=== PATIENT | female | born 1960 | race Caucasian/White ===

== ENCOUNTER 2017-11-28 17:52 | Observation (INO) ==
--- NOTE | 2017-11-28 17:57 | Emergency Department Note ---
Disposition Clinical Impression: Chest pain, Atrial fibrillation Disposition: Admitted As Inpatient Condition: Good General Adult HPI - General Chief complaint: ED Chest Pain Stated complaint: chest pain Time Seen by Provider: 11/28/17 17:54 - Related Data Home Medications Medication Instructions Recorded Confirmed Amitriptyline 10 mg PO HS 11/28/17 11/29/17 Aspirin [Lo-Dose Aspirin EC] 81 mg PO HS 11/28/17 11/29/17 Atorvastatin [Lipitor] 80 mg PO HS 11/28/17 11/29/17 Bupropion HCl [Wellbutrin Xl] 300 mg PO DAILY 11/28/17 11/29/17 Levothyroxine [Synthroid] 88 mcg PO 0630 11/28/17 11/29/17 Lisinopril [Zestril] 20 mg PO DAILY 11/28/17 11/29/17 Metoprolol Tartrate 12.5 mg PO BID 11/28/17 11/29/17 Omeprazole [PriLOSEC] 20 mg PO DAILY 11/28/17 11/29/17 Sertraline [Zoloft] 50 mg PO DAILY 11/28/17 11/29/17 metFORMIN [Glucophage] 500 mg PO DAILY 11/28/17 11/29/17 Allergies Allergy/AdvReac Type Severity Reaction Status Date / Time ondansetron AdvReac Flushing Verified 12/13/15 14:52 [From Zofran (as hydrochloride)] Past Medical History - Past Medical History Medical history: Reports: arthritis, coronary artery disease, diabetes, hyperlipidemia, hypertension, myocardial infarction, thyroid disease Surgical history: Reports: coronary bypass (CABG) Psychiatric history: Reports: anxiety, depression - Social History Smoking Status: Former smoker Smokeless Tobacco Status: No Alcohol use: Reports: none Drug use: Reports: none Course Vital Signs Temperature 97.2 F L 11/28/17 17:53 Pulse Rate 87 11/28/17 17:53 Respiratory Rate 16 11/28/17 17:53 Blood Pressure 114/70 11/28/17 17:53 O2 Sat by Pulse Oximetry 94 11/28/17 17:53 Temperature 97.9 F 11/29/17 19:00 Pulse Rate 73 11/29/17 19:00 Respiratory Rate 16 11/29/17 19:00 Blood Pressure 124/65 11/29/17 19:00 O2 Sat by Pulse Oximetry 93 11/29/17 19:00 Oxygen Delivery Oxygen Delivery Room Air Medical Decision Making - Lab Data Result diagrams: 11/29/17 00:45 11/29/17 00:45 Lab Results 11/28/17 11/28/17 11/28/17 Range/Units 18:15 18:15 18:15 WBC 9.1 (4.3-11.1) K/mcL RBC 5.06 H (3.82-4.97) M/mcL Hgb 14.2 (11.5-15.4) g/dL Hct 44.2 (35.3-44.9) % MCV 87.4 (83.0-100.0) fL MCH 28.1 (28.0-33.3) pg MCHC 32.1 (31.6-35.5) g/dL RDW 12.7 (11.5-14.5) % Plt Count 289 (140-400) K/mcL MPV 9.9 (9.4-12.4) fL Immature Gran % 0.3 (0-4) % Seg Neutrophils % 68.3 % Lymphocytes % 21.1 % Monocytes % 7.6 % Eosinophils % 2.3 % Basophils % 0.4 % Neutrophils # 6.2 (1.6-8.9) K/mcL Lymphocytes # 1.9 (0.6-4.6) K/mcL Monocytes # 0.7 (0.0-1.3) K/mcL Eosinophils # 0.2 (0.0-0.6) K/mcL Basophils # 0.0 (0.0-0.2) K/mcL PT 12.0 (9.4-12.1) Seconds INR 1.1 APTT 33.3 (26.0-36.0) Seconds Sodium 135 L (136-145) mEq/L Potassium 4.2 (3.5-5.1) mEq/L Chloride 102 (98-107) mEq/L Carbon Dioxide 26 (23-29) mEq/L BUN 22 H (6-20) mg/dL Creatinine 0.97 (0.60-1.20) mg/dL Est GFR ( Amer) > 60 (> 60) Est GFR (Non-Af Amer) 59 L (> 60) BUN/Creatinine Ratio 23 (6-26) Glucose 91 (70-105) mg/dL Calculated Osmolality 283 (280-300) Calcium 9.4 (8.6-10.3) mg/dL Troponin I (< 0.04) ng/mL 11/28/17 Range/Units 18:15 WBC (4.3-11.1) K/mcL RBC (3.82-4.97) M/mcL Hgb (11.5-15.4) g/dL Hct (35.3-44.9) % MCV (83.0-100.0) fL MCH (28.0-33.3) pg MCHC (31.6-35.5) g/dL RDW (11.5-14.5) % Plt Count (140-400) K/mcL MPV (9.4-12.4) fL Immature Gran % (0-4) % Seg Neutrophils % % Lymphocytes % % Monocytes % % Eosinophils % % Basophils % % Neutrophils # (1.6-8.9) K/mcL Lymphocytes # (0.6-4.6) K/mcL Monocytes # (0.0-1.3) K/mcL Eosinophils # (0.0-0.6) K/mcL Basophils # (0.0-0.2) K/mcL PT (9.4-12.1) Seconds INR APTT (26.0-36.0) Seconds Sodium (136-145) mEq/L Potassium (3.5-5.1) mEq/L Chloride (98-107) mEq/L Carbon Dioxide (23-29) mEq/L BUN (6-20) mg/dL Creatinine (0.60-1.20) mg/dL Est GFR ( Amer) (> 60) Est GFR (Non-Af Amer) (> 60) BUN/Creatinine Ratio (6-26) Glucose (70-105) mg/dL Calculated Osmolality (280-300) Calcium (8.6-10.3) mg/dL Troponin I < 0.03 (< 0.04) ng/mL Attestation Statement - Attestation Attestation: I examined this patient and my medical decision-making was reviewed with the Resident Physician. I agree with the documented findings, disposition and treatment plan as described except to the extent set forth below. [id number] time provided Patient arrives by EMS complaining of chest discomfort. She has a history of coronary artery disease with previous multivessel CABG. She appears in no acute distress on exam. Workup initiated. Course to Dr. Luis at 19:00 pending completion of evaluation
[2017-11-28] MEDS ORDERED: Nitroglycerin 0.4 MG TAB.SUBL SL ONE (18:04)
--- NOTE | 2017-11-28 18:15 | Emergency Department Note ---
Disposition Clinical Impression: Chest pain Qualifiers: Chest pain type: unspecified Qualified Code(s): R07.9 - Chest pain, unspecified Disposition: Still a Patient Condition: Fair Forms: ED Satisfaction Letter Chest Pain HPI - General Chief Complaint: ED Chest Pain Stated Complaint: chest pain Time Seen by Provider: 11/28/17 17:54 Source: patient, EMS Mode of arrival: EMS Limitations: no limitations Vital Signs Reviewed: Yes Nursing Notes Reviewed: Yes - History of Present Illness HPI Narrative: 57-year-old female presented to the emergency department with chest pain she said it began about 23 hours prior to her arrival. Says like a chest pressure going into her left arm. She has had a quintuple bypass done in 2010. Patient states she has had no cardiac issues since then. Her last stress test and echocardiogram was about 2 years ago which was normal as far she knows. Patient stated that this pain came on said while she was sitting down. It is not worse with exertion and has not changed. She has not taken anything for the pain. EMS gave her 324 mg of aspirin with name pick her up. Patient otherwise having no complaints including no headache, blurry vision, neck pain, back pain, nausea, vomiting, fever, chills, shortness of breath, abdominal pain , pain or tingling in the arms and legs, generalized weakness, pain with urination, changes in bowel movements. Severity scale (1-10): 2 - Related Data Allergies Allergy/AdvReac Type Severity Reaction Status Date / Time ondansetron AdvReac Flushing Verified 12/13/15 14:52 [From Zofran (as hydrochloride)] Review of Systems: 10 point review of systems done and negative unless otherwise stated in history of present illness. All systems ED: reviewed and negative except as stated. Review of Systems: As Per HPI Chest Pain PMH - Past Medical History Medical history: Reports: arthritis, coronary artery disease, diabetes, hyperlipidemia, hypertension, myocardial infarction, thyroid disease Surgical history: Reports: coronary bypass (CABG) Psychiatric history: Reports: anxiety, depression - Social History Smoking Status: Former smoker Alcohol use: Reports: none Drug use: Reports: none Physical Exam - General Limitations: no limitations General appearance: alert, in no apparent distress - Head Head exam: atraumatic, normocephalic, normal inspection - Eye Eye exam: Present: normal appearance, PERRL, EOMI - ENT ENT exam: normal exam, normal oropharynx, mucous membranes moist - Neck Neck exam: Present: normal inspection, full ROM, trachea midline - Chest Chest inspection: Present: normal inspection, symmetric chest wall rise - Respiratory Respiratory exam: Present: normal lung sounds bilaterally - Cardiovascular Cardiovascular exam: Present: regular rate, normal rhythm, normal heart sounds - Abdominal Exam Abdominal exam: Present: soft, Non-Tender. Absent: tenderness, distention, guarding, rebound, rigidity - Extremities Exam Extremities exam: Present: normal inspection, full ROM. Absent: tenderness, pedal edema - Expanded Lower Extremity Exam Neurovascular/Tendon exam: Present: normal capillary refill. Absent: pulse deficit, motor deficit, sensory deficit, tendon deficit - Back Exam Back exam: Present: normal inspection - Neurological Exam Neurological exam: Present: alert, oriented X3 - Skin Skin exam: Present: warm, dry, intact, normal color Course Course Narrative: 57-year-old female presents to the emergency department complaining of chest pain. She says is more a chest pressures began about 2 or 3 hours ago while she was sitting down. We will get basic chest pain workup including CBC, BMP, troponin as well as EKG and chest x-ray. We will offer patient nitroglycerin for her chest pain if her blood pressure stays up. We will not give aspirin as this was already given by EMS. If troponin comes back negative erythematous, back negative we will repeat troponin 2 hours later. Vital Signs Temperature 97.2 F L 11/28/17 17:53 Pulse Rate 87 11/28/17 17:53 Respiratory Rate 16 11/28/17 17:53 Blood Pressure 114/70 11/28/17 17:53 O2 Sat by Pulse Oximetry 94 11/28/17 17:53 Temperature 97.2 F L 11/28/17 17:53 Pulse Rate 85 11/28/17 18:10 Respiratory Rate 13 11/28/17 18:10 Blood Pressure 114/70 11/28/17 18:10 O2 Sat by Pulse Oximetry 93 11/28/17 18:10 Oxygen Delivery Oxygen Delivery Room Air Chest Pain - MDM Narrative Medical decision making narrative: 57-year-old female presents to the emergency department complaining of chest pain. Labs and chest x-ray are still pending at this time. EKG had no acute findings. If troponin comes back negative one will be repeated 2 hours after the original one. If this comes back negative patient can be discharged home with cardiology follow-up. We did offer nitroglycerin but she is not having pain so did not give aspirin was given prior to her arrival. I am signing the patient out to the night team physicians Dr. Jacobs and Dr. Luis. They will follow-up on the repeat troponin to see if patient can be discharged. - Medical Records Medical records reviewed: Yes I reviewed the patient's medical records. - Lab Data Lab results reviewed: Yes I reviewed the patient's lab results. - Radiology Data Radiology results reviewed: Yes I reviewed the patient's radiology results. - EKG Data EKG attestation: Yes I reviewed and interpreted this EKG. EKG results narrative: EKG done at 1801 review myself intending shows sinus rhythm at a rate of 84, QRS 94, QTC 405 with a normal axis. There is no acute ST changes no acute T- wave changes no other signs of ischemia. There is no heart strain or hypertrophy or any sign of heart blocks. No WPW/Brugada syndrome. His EKG is unchanged when compared with old one done 12/13/15. Heart Score - Score History: Moderately Suspicious EKG: Normal Age: 45-65 Risk Factors: Equal/Greater than 3 risk factor or history of atherosclerotic disease
[2017-11-28 18:24] LABS: Basophils % 0.4 %; Eosinophils # 0.2 K/mcL (0.0-0.6); Eosinophils % 2.3 %; Hematocrit 44.2 % (35.3-44.9); Hemoglobin 14.2 g/dL (11.5-15.4); Immature Granulocytes % 0.3 % (0-4); Lymphocytes # 1.9 K/mcL (0.6-4.6); Lymphocytes % 21.1 %; Mean Corpuscular HGB Conc 32.1 g/dL (31.6-35.5); Mean Corpuscular Hemoglobin 28.1 pg (28.0-33.3); Mean Corpuscular Volume 87.4 fL (83.0-100.0); Mean Platelet Volume 9.9 fL (9.4-12.4); Monocytes # 0.7 K/mcL (0.0-1.3); Monocytes % 7.6 %; Neutrophils # 6.2 K/mcL (1.6-8.9); Platelet Count 289 K/mcL (140-400); Red Blood Count 5.06 M/mcL (3.82-4.97); Red Cell Distribution Width 12.7 % (11.5-14.5); Segmented Neutrophils % 68.3 %
[2017-11-28 18:29] LABS: INR 1.1
[2017-11-28 18:32] LABS: Activated Partial Thrombo Time 33.3 Seconds (26.0-36.0)
[2017-11-28 18:33] LABS: BUN/Creatinine Ratio 23 (6-26); Blood Urea Nitrogen 22 mg/dL (6-20); Calcium 9.4 mg/dL (8.6-10.3); Carbon Dioxide 26 mEq/L (23-29); Chloride 102 mEq/L (98-107); Glucose 91 mg/dL (70-105); Osmolality,Calculated 283 (280-300); Potassium 4.2 mEq/L (3.5-5.1); Sodium 135 mEq/L (136-145); eGFR For African Americans > 60 (> 60); eGFR For Non-African Americans 59 (> 60)
--- NOTE | 2017-11-28 19:12 | Emergency Department Note ---
Disposition Clinical Impression: Chest pain Qualifiers: Chest pain type: unspecified Qualified Code(s): R07.9 - Chest pain, unspecified Atrial fibrillation Qualifiers: Atrial fibrillation type: chronic Qualified Code(s): I48.2 - Chronic atrial fibrillation Disposition: Admitted As Inpatient Condition: Good Time of Disposition: 19:49 General Adult HPI - General Chief complaint: ED Chest Pain Stated complaint: chest pain Time Seen by Provider: 11/28/17 17:54 Source: patient, EMS Mode of arrival: EMS Limitations: no limitations - History of Present Illness Pain Scale: 2 - Related Data Allergies Allergy/AdvReac Type Severity Reaction Status Date / Time ondansetron AdvReac Flushing Verified 12/13/15 14:52 [From Zofran (as hydrochloride)] Past Medical History - Past Medical History Medical history: Reports: arthritis, coronary artery disease, diabetes, hyperlipidemia, hypertension, myocardial infarction, thyroid disease Surgical history: Reports: coronary bypass (CABG) Psychiatric history: Reports: anxiety, depression - Social History Smoking Status: Former smoker Smokeless Tobacco Status: No Alcohol use: Reports: none Drug use: Reports: none Physical Exam - General Limitations: no limitations General appearance: alert, in no apparent distress Course - Reevaluation(s) Reevaluation #1: Patient was signed out at 1900 from the day team. The patient presented to the emergency department for left neck shoulder and arm pain. Due to the patient having an extensive cardiac history it is likely that the patient will need to be admitted to the hospital. Upon my evaluation the patient was currently pain- free. We will repeat an EKG at this time. Patient is currently stable and in no acute distress. Time: 19:10 Vital Signs Temperature 97.2 F L 11/28/17 17:53 Pulse Rate 87 11/28/17 17:53 Respiratory Rate 16 11/28/17 17:53 Blood Pressure 114/70 11/28/17 17:53 O2 Sat by Pulse Oximetry 94 11/28/17 17:53 Temperature 97.2 F L 11/28/17 17:53 Pulse Rate 79 11/28/17 19:45 Respiratory Rate 12 11/28/17 19:45 Blood Pressure 136/69 11/28/17 19:45 O2 Sat by Pulse Oximetry 93 11/28/17 19:45 Oxygen Delivery Oxygen Delivery Room Air Medical Decision Making - MDM Narrative Medical decision making narrative: The patient reporting with chest pain today to get ordered a CBC, BMP, troponin and chest x-ray and EKG. The patient's troponin was negative the remainder of her laboratory testing was unremarkable the EKG showed atrial fibrillation. Chest x-ray showed no acute cardiopulmonary process. Upon talking with the patient states that she has a history of atrial fibrillation. Due to the patient having a extensive cardiac history with a quadruple bypass and presenting with left neck and shoulder and arm pain patient will need to be admitted to the hospital for further evaluation and management. I called and spoke with the hospitalist negative except for the patient to their service. The patient will be admitted to the hospital and for further evaluation and management. - Lab Data Lab results reviewed: Yes I reviewed the patient's lab results. Result diagrams: 11/28/17 18:15 11/28/17 18:15 Lab Results 11/28/17 11/28/17 11/28/17 Range/Units 18:15 18:15 18:15 WBC 9.1 (4.3-11.1) K/mcL RBC 5.06 H (3.82-4.97) M/mcL Hgb 14.2 (11.5-15.4) g/dL Hct 44.2 (35.3-44.9) % MCV 87.4 (83.0-100.0) fL MCH 28.1 (28.0-33.3) pg MCHC 32.1 (31.6-35.5) g/dL RDW 12.7 (11.5-14.5) % Plt Count 289 (140-400) K/mcL MPV 9.9 (9.4-12.4) fL Immature Gran % 0.3 (0-4) % Seg Neutrophils % 68.3 % Lymphocytes % 21.1 % Monocytes % 7.6 % Eosinophils % 2.3 % Basophils % 0.4 % Neutrophils # 6.2 (1.6-8.9) K/mcL Lymphocytes # 1.9 (0.6-4.6) K/mcL Monocytes # 0.7 (0.0-1.3) K/mcL Eosinophils # 0.2 (0.0-0.6) K/mcL Basophils # 0.0 (0.0-0.2) K/mcL PT 12.0 (9.4-12.1) Seconds INR 1.1 APTT 33.3 (26.0-36.0) Seconds Sodium 135 L (136-145) mEq/L Potassium 4.2 (3.5-5.1) mEq/L Chloride 102 (98-107) mEq/L Carbon Dioxide 26 (23-29) mEq/L BUN 22 H (6-20) mg/dL Creatinine 0.97 (0.60-1.20) mg/dL Est GFR ( Amer) > 60 (> 60) Est GFR (Non-Af Amer) 59 L (> 60) BUN/Creatinine Ratio 23 (6-26) Glucose 91 (70-105) mg/dL Calculated Osmolality 283 (280-300) Calcium 9.4 (8.6-10.3) mg/dL Troponin I (< 0.04) ng/mL 11/28/17 Range/Units 18:15 WBC (4.3-11.1) K/mcL RBC (3.82-4.97) M/mcL Hgb (11.5-15.4) g/dL Hct (35.3-44.9) % MCV (83.0-100.0) fL MCH (28.0-33.3) pg MCHC (31.6-35.5) g/dL RDW (11.5-14.5) % Plt Count (140-400) K/mcL MPV (9.4-12.4) fL Immature Gran % (0-4) % Seg Neutrophils % % Lymphocytes % % Monocytes % % Eosinophils % % Basophils % % Neutrophils # (1.6-8.9) K/mcL Lymphocytes # (0.6-4.6) K/mcL Monocytes # (0.0-1.3) K/mcL Eosinophils # (0.0-0.6) K/mcL Basophils # (0.0-0.2) K/mcL PT (9.4-12.1) Seconds INR APTT (26.0-36.0) Seconds Sodium (136-145) mEq/L Potassium (3.5-5.1) mEq/L Chloride (98-107) mEq/L Carbon Dioxide (23-29) mEq/L BUN (6-20) mg/dL Creatinine (0.60-1.20) mg/dL Est GFR ( Amer) (> 60) Est GFR (Non-Af Amer) (> 60) BUN/Creatinine Ratio (6-26) Glucose (70-105) mg/dL Calculated Osmolality (280-300) Calcium (8.6-10.3) mg/dL Troponin I < 0.03 (< 0.04) ng/mL - Radiology Data Radiology results reviewed: Yes I reviewed the patient's radiology results. Chest X-Ray 11/28/17 18:04 IMPRESSION: No acute cardiopulmonary process. D/ / Roosevelt Foley MD / Roosevelt Foley MD Interpreting Provider: Roosevelt Foley MD - EKG Data EKG #2 EKG attestation: Yes I reviewed and interpreted this EKG. EKG results narrative: EKG showed atrial for relation at a rate of 79 bpm, QRS duration of 101, QTc of 414. This was compared to previous EKG that was done at 1801 which also showed atrial fibrillation. This is compared to previous EKG on 12/13/15 that showed sinus rhythm at 83 bpm. Attestation Statement - Attestation Attestation: I examined this patient and my medical decision-making was reviewed with the Resident Physician. I agree with the documented findings, disposition and treatment plan as described except to the extent set forth below. Patient signed out pending workup. Patient with left shoulder and neck pain and a history coronary disease. She is admitted to medicine. Workup unremarkable this time.
[2017-11-28] MEDS ORDERED: Naloxone 0.4 MG/ML INJ IVP PRN (20:16)
--- NOTE | 2017-11-28 20:26 | Internal Med History&Physical ---
<Aki Moreno - Last Filed: 11/28/17 22:12> Date of Encounter: 11/28/17 Time of Encounter: 20:22 Assessment and Plan (1) Chest pain Current visit: Yes Status: Acute ASSESSMENT: - Atypical Chest pain presentation of unclear etiology. Patient has extensive cardiac history and multiple risk factors including diabetes, hypertension, hyperlipidemia, CAD, morbid obesity, prior smoking history, atrial fibrillation , previous NE and 4 vessel CABG. EKG in the ED shows atrial fibrillation, rate controlled, and initial troponin also unremarkable. However due to risk factors , history and presentation she is being admitted for observation to further rule out ACS. She is currently CP free and hemodynamically stable. PLAN: - cardiac enzymes x 2 q 6 hr - ASA - O2 by NC to keep SpO2 greater than 92% - CBCD, BMP in AM - Fasting lipids - Heparin 5000 U SQ BID - 2D Echo - Cardiac diet now, NPO midnight of Thursday night - Nuclear stress Thursday morning - Continuous tele, Continuous Spo2 monitoring - O2 per NC PRN to maintain Spo2 sat's greater than 92% Qualifiers: Chest pain type: unspecified Qualified Code(s): R07.9 - Chest pain, unspecified (2) CAD (coronary artery disease) Current visit: Yes Status: Acute Continue, ASA, Statin Qualifiers: Coronary Disease-Associated Artery/Lesion type: bypass graft [place] vs. transplanted heart: [place] heart Associated angina: with other forms of angina Qualified Code(s): I25.708 - Atherosclerosis of coronary artery bypass graft(s), unspecified, with other forms of angina pectoris (3) HLD (hyperlipidemia) Current visit: Yes Status: Acute Continue statin Qualifiers: Hyperlipidemia type: unspecified Qualified Code(s): E78.5 - Hyperlipidemia , unspecified (4) Atrial fibrillation Current visit: Yes Status: Acute Paroxysmal atrial fibrillation. Was A. fib rate controlled on arrival. Per auscultation and monitor she is now sinus rhythm -Continuous telemetry Qualifiers: Atrial fibrillation type: chronic Qualified Code(s): I48.2 - Chronic atrial fibrillation (5) Diabetes Current visit: Yes Status: Acute Low sliding scale insulin coverage with AC/HS accu-check and cardiac/diabetic diet Qualifiers: Diabetes mellitus type: type 2 Diabetes mellitus complication status: without complication Diabetes mellitus nursing home insulin use: without nursing home use Qualified Code(s): E11.9 - Type 2 diabetes mellitus without complications (6) HTN (hypertension) Current visit: Yes Status: Acute Stable. Resume antihypertensives Qualifiers: Hypertension type: essential hypertension Qualified Code(s): I10 - Essential (primary) hypertension (7) Hypothyroid Current visit: Yes Status: Acute Resume Synthroid Qualifiers: Hypothyroidism type: unspecified Qualified Code(s): E03.9 - Hypothyroidism , unspecified (8) DVT prophylaxis Current visit: Yes Status: Acute Heparin 5000 units SC BID Internal Medicine - H&P: HPI Chief complaint: chest pain Admitted From: Home Plans for Post Hospital Care: Home History of present illness: Ms. Rodriguez is a 57 year old female with a past medical history arthritis, CAD , DM, anxiety, HTN, NE, paroxysmal a-fib, hypothyroidism and 4 vessel CABG. She presented to [facility] today with dull ache in her left neck, face, shoulder and left arm which began at approximately 3 PM this afternoon and lasted for approximately 2 hours. The pain has subsided by the time she arrived to the emergency department. She denies any exacerbating or alleviating factors and reports that the pain came on all of a sudden when she was resting. She reports she had not taken anything for the pain. She denied any associated shortness of breath, chest pain, nausea, vomiting, diaphoresis, lightheadedness or dizziness. She does have a pretty extensive heart history and multiple comorbidities as listed above. Admit for observation to r/o ACS Past Med Surg Social Fam HX - Past Medical History Medical history: arthritis, coronary artery disease, diabetes, hyperlipidemia, hypertension, myocardial infarction, thyroid disease Psychiatric history: anxiety, depression - Past Surgical History Surgical History: coronary bypass (CABG) - Social History Smoking Status: Former smoker Smokeless Tobacco Status: No Alcohol use: none Drug use: none - Family History Mother Hx Family Cardiac Disorders: Yes (NE) Father Hx Family Cardiac Disorders: Yes (NE) Internal Medicine - H&P: Meds Amitriptyline 10 mg PO HS 11/28/17 [History] Aspirin [Lo-Dose Aspirin EC] 81 mg PO HS 11/28/17 [History] Atorvastatin [Lipitor] 80 mg PO HS 11/28/17 [History] Bupropion HCl [Wellbutrin Xl] 300 mg PO DAILY 11/28/17 [History] Levothyroxine [Synthroid] 88 mcg PO 0630 11/28/17 [History] Lisinopril [Zestril] 20 mg PO DAILY 11/28/17 [History] Metoprolol Tartrate 12.5 mg PO BID 11/28/17 [History] Omeprazole [PriLOSEC] 20 mg PO DAILY 11/28/17 [History] Sertraline [Zoloft] 50 mg PO DAILY 11/28/17 [History] metFORMIN [Glucophage] 500 mg PO DAILY 11/28/17 [History] 3 Allergy/AdvReac Type Severity Reaction Status Date / Time ondansetron AdvReac [place] Verified 12/13/15 14:52 [From Zofran (as hydrochloride)] All Systems PM: A 10-system review of systems was performed and is negative for pertinent findings except as documented above in the HPI. - Constitutional Constitutional: no chills, no fever(s), no night sweats - EENT Eyes: no change in vision, no discharge, no pain, no photophobia Ears: no ear discharge, no ear pain, no tinnitus Nose, mouth and throat: no dysphagia, no nasal discharge, no neck pain, no sore throat - Cardiovascular Cardiovascular ROS IM: as per HPI - Respiratory Respiratory: no cough, no dyspnea, no wheezing, no excessive phlegm production - Gastrointestinal Gastrointestinal: no abdominal pain, no diarrhea, no hematemesis, no hematochezia, no melena, no nausea, no vomiting - Genitourinary Genitourinary: no change in urinary stream, no dysuria, no flank pain, no hematuria - Musculoskeletal Musculoskeletal ROS IM: no numbness, no tingling - Integumentary Integumentary IM: no rash, no unusual bruising - Neurological Neurological ROS: no confusion, no convulsions, no focal weakness, no numbness, no tingling, no tremor(s) - Constitutional Vitals: Temp Pulse Resp BP Pulse Ox 97.2 F L 79 12 136/69 93 11/28/17 17:53 11/28/17 19:45 11/28/17 19:45 11/28/17 19:45 11/28/17 19:45 General appearance: Present: cooperative, A&O X 3, morbidly obese, no acute distress, answers questions appropriately - Head Head exam: Present: atraumatic, normocephalic - Eye Eye exam: Present: PERRL, conjuntiva pink, sclera anicteric Pupils: Present: PERRL - Neck Neck exam general surgery: Present: supple, trachea midline. Absent: lymphadenopathy - Respiratory Respiratory exam: Present: CTAB. Absent: accessory muscle use, rales, rhonchi, wheezes - Cardiovascular Cardiovascular exam: Present: RRR, +S1, +S2. Absent: diastolic murmur, gallop, rubs, systolic murmur, tachycardia - GI/Abdominal GI/Abdominal exam: Present: normal bowel sounds, soft, no peritoneal signs. Absent: distended, tenderness - Extremities Exam Extremities exam: Present: normal capillary refill, warm, radial pulses palpable and symmetrical. Absent: calf tenderness, cyanotic, pedal edema - Neurological Exam Neurological exam: Present: oriented X3, no focal deficits. Absent: pronater drift, facial droop, speech deficit - Skin Skin exam: Present: dry, intact Internal Med - H&P Results - Labs CBC & Chem 7: 11/28/17 18:15 11/28/17 18:15 - EKG Data -: EKG Interpreted by Myself - EKG Data EKG comments: A-fib rate control 11/28/17 20:48 - Impressions Impressions Chest X-Ray 11/28/17 18:04 IMPRESSION: No acute cardiopulmonary process. D/ / Roosevelt Foley MD / Roosevelt Foley MD Interpreting Provider: Roosevelt Foley MD <Herbert Meade - Last Filed: 11/28/17 22:48> Date of Encounter: 11/28/17 Time of Encounter: 21:15 Internal Medicine - H&P: HPI History of present illness: Ms. Rodriguez is a 57 year old female All Systems PM: A 10-system review of systems was performed and is negative for pertinent findings except as documented above in the HPI. - Constitutional Vitals: Temp Pulse Resp BP Pulse Ox 98.1 F 81 16 110/77 93 11/28/17 21:02 11/28/17 21:02 11/28/17 21:02 11/28/17 21:02 11/28/17 21:02 Internal Med - H&P Results - Labs CBC & Chem 7: 11/28/17 18:15 11/28/17 18:15 - Attending Attestation I examined this patient and my medical decision-making was reviewed with the Nurse Practitioner, Aki Moreno. I agree with the documented findings, disposition and treatment plan as described with any changes set forth below. 57-year-old female patient presenting with chest atypical chest pain. Reports left arm ache with radiation to the jaw and left chin and face associated with some numbness. Prior history of coronary artery disease and coronary artery bypass grafting. Also history of A. fib. On examination no chest wall tenderness. Patient is in A. fib. EKG shows A. fib with no ST segment changes. Chest pain: Atypical. Place patient under observation. Telemetry. Trend troponins. Cardiac stress test. Atrial fibrillation: Rate controlled. Patient reports being on anticoagulation but no medications listed on her chart and her INR is 1.1. Will get 2-D echocardiogram. For now, we will place her on subcutaneous heparin. Patient is on aspirin. She does have Chads2 Vasc Score of 3. We will need to discuss anticoagulation with her based on her echocardiogram findings. Diabetes mellitus type 2: Monitor blood sugars. Check A1c. Sliding scale insulin. Essential hypertension: Monitor blood pressure. Resume home medications. Coronary artery disease: Continue aspirin and other home medications.
[2017-11-28] MEDS ORDERED: Dextrose Gel 15 GM/37.5 ML TUBE PO PRN ×2 (22:10)
[2017-11-28] MEDS ORDERED: D5% in Water 1,000 ML IVC PRN (22:10)
[2017-11-28] MEDS ORDERED: *HR* Dextrose 50 % in Water (Syg) 50 ML SYRINGE IVP PRN (22:10)
[2017-11-28] MEDS: Aspirin Enteric Coated 81 MG Tablet PO SCH (22:40)
[2017-11-28] MEDS: Insulin LISPRO 300 UNITS/3 ML VIAL SQ SCH (22:41)
[2017-11-29 01:23] LABS: Basophils % 0.5 %; Eosinophils # 0.2 K/mcL (0.0-0.6); Eosinophils % 2.6 %; Hematocrit 40.5 % (35.3-44.9); Hemoglobin 12.9 g/dL (11.5-15.4); Immature Granulocytes % 0.9 % (0-4); Immature Platelets 3.4 % (1.1-6.1); Lymphocytes # 1.8 K/mcL (0.6-4.6); Lymphocytes % 20.8 %; Mean Corpuscular HGB Conc 31.9 g/dL (31.6-35.5); Mean Corpuscular Hemoglobin 27.9 pg (28.0-33.3); Mean Corpuscular Volume 87.5 fL (83.0-100.0); Monocytes # 0.5 K/mcL (0.0-1.3); Monocytes % 6.1 %; Neutrophils # 5.9 K/mcL (1.6-8.9); Nucleated Red Blood Cells 0.2 /100 WBC (0); Platelet Count 240 K/mcL (140-400); Red Blood Count 4.63 M/mcL (3.82-4.97); Red Cell Distribution Width 12.7 % (11.5-14.5); Segmented Neutrophils % 69.1 %
[2017-11-29 02:01] LABS: Chol/HDL Ratio 3.2 (0-4.9)
[2017-11-29 02:02] LABS: BUN/Creatinine Ratio 21 (6-26); Blood Urea Nitrogen 20 mg/dL (6-20); Carbon Dioxide 27 mEq/L (23-29); Chloride 107 mEq/L (98-107); Glucose 145 mg/dL (70-105); Osmolality,Calculated 293 (280-300); Sodium 139 mEq/L (136-145); eGFR For African Americans > 60 (> 60); eGFR For Non-African Americans 60 (> 60)
[2017-11-29] MEDS: *HR* Heparin 5,000 UNIT/ML VIAL SQ SCH ×2 (05:32→17:36)
[2017-11-29] MEDS: Insulin LISPRO 300 UNITS/3 ML VIAL SQ SCH ×4 (08:07→20:17)
[2017-11-29] MEDS: Lisinopril 20 MG TABLET PO SCH (08:11)
[2017-11-29] MEDS: BuPROPion XL (24 HR) 150 MG TABLET PO SCH (08:11)
[2017-11-29] MEDS ORDERED: Acetaminophen 325 MG TABLET PO PRN (16:02)
--- NOTE | 2017-11-29 16:50 | Internal Med Progress Note ---
Date of Encounter: 11/29/17 Time of Encounter: 10:45 - Assessment and plan (1) CAD (coronary artery disease) Current Visit: Yes Status: Acute Assessment and plan: hx MA; presented with left shoulder pain that radiated to the neck, concerning for anginal. Troponin 2 negative. EKG without acute ST changes. NPO at midnight. Stress test in a.m. Continue ASA, BB, statin, Qualifiers: Coronary Disease-Associated Artery/Lesion type: bypass graft [place] vs. transplanted heart: [place] heart Associated angina: with other forms of angina Qualified Code(s): I25.708 - Atherosclerosis of coronary artery bypass graft(s), unspecified, with other forms of angina pectoris (2) Atrial fibrillation Current Visit: Yes Status: Acute Assessment and plan: hx paroxysmal A. fib. EKG with NSR. Continue home BB. Not on anticoagulation for unknown reason. Will investigate. Continue to monitor on telemetry. Qualifiers: Atrial fibrillation type: chronic Qualified Code(s): I48.2 - Chronic atrial fibrillation (3) Diabetes Current Visit: Yes Status: Acute Assessment and plan: per hx. Blood sugars controlled. Continue SSI. Monitor blood sugar and titrate PRN Qualifiers: Diabetes mellitus type: type 2 Diabetes mellitus complication status: without complication Diabetes mellitus ferry terminal supervisor insulin use: without ferry terminal supervisor use Qualified Code(s): E11.9 - Type 2 diabetes mellitus without complications (4) HLD (hyperlipidemia) Current Visit: Yes Status: Acute Qualifiers: Hyperlipidemia type: unspecified Qualified Code(s): E78.5 - Hyperlipidemia , unspecified (5) HTN (hypertension) Current Visit: Yes Status: Acute Assessment and plan: per hx. BP controlled. Cont BP medication. Monitor BP and titrate PRN Qualifiers: Hypertension type: essential hypertension Qualified Code(s): I10 - Essential (primary) hypertension (6) Hypothyroid Current Visit: Yes Status: Acute Assessment and plan: per hx. Cont home Levothyroxine Qualifiers: Hypothyroidism type: unspecified Qualified Code(s): E03.9 - Hypothyroidism , unspecified (7) DVT prophylaxis Current Visit: Yes Status: Acute - Subjective Interval history: Seen and examined at bedside, patient is new to me. Information obtained from chart review and patient report. Patient says she feels at baseline. Says she never had chest pain but rather right upper extremity and neck pain which is now resolved. No shortness of breath. She will most likely be a two-day stress and she is agreeable to stay inpatient. - Constitutional Vitals: Temp Pulse Resp BP Pulse Ox 98.3 F 62 16 116/71 95 11/29/17 15:37 11/29/17 15:37 11/29/17 15:37 11/29/17 15:37 11/29/17 15:37 General appearance: Present: cooperative, A&O X 3, morbidly obese, no acute distress, answers questions appropriately - Head Head exam: Present: atraumatic, normocephalic - Eye Eye exam: Present: PERRL, conjuntiva pink, sclera anicteric Pupils: Present: PERRL - Neck Neck exam general surgery: Present: supple, trachea midline. Absent: lymphadenopathy - Respiratory Respiratory exam: Present: CTAB. Absent: accessory muscle use, rales, rhonchi, wheezes - Cardiovascular Cardiovascular exam: Present: RRR, +S1, +S2. Absent: diastolic murmur, gallop, rubs, systolic murmur - GI/Abdominal GI/Abdominal exam: Present: normal bowel sounds, soft, no peritoneal signs. Absent: distended, tenderness - Extremities Exam Extremities exam: Present: warm, radial pulses palpable and symmetrical. Absent : calf tenderness, cyanotic, pedal edema - Neurological Exam Neurological exam: Present: CN II-XII intact, oriented X3, no focal deficits. Absent: pronater drift, facial droop, speech deficit - Skin Skin exam: Present: dry, intact Internal Medicine: Result - Labs CBC & Chem 7: 11/29/17 00:45 11/29/17 00:45 Labs: Short CBC 11/29/17 Range/Units 00:45 WBC 8.5 (4.3-11.1) K/mcL Hgb 12.9 (11.5-15.4) g/dL Hct 40.5 (35.3-44.9) % Plt Count 240 (140-400) K/mcL Neutrophils # 5.9 (1.6-8.9) K/mcL BMP 11/29/17 00:45 Sodium 139 Potassium 4.0 Chloride 107 Carbon Dioxide 27 BUN 20 Creatinine 0.96 Glucose 145 H Calcium 9.0 Cardiac Enzymes 11/29/17 Range/Units 00:45 Troponin I < 0.03 (< 0.04) ng/mL - ABG Interpretation ABG results: PT/INR, D-dimer PT 12.0 Seconds (9.4-12.1) 11/28/17 18:15 Consult Discharge Plan - Plan Referrals: Ness Amaya, DI[employer]OND FINISHING SUPERVISOR [Primary Care Provider] -
[2017-11-29] MEDS: Aspirin Enteric Coated 81 MG Tablet PO SCH (20:17)
[2017-11-30] MEDS: *HR* Heparin 5,000 UNIT/ML VIAL SQ SCH ×2 (04:58→18:16)
[2017-11-30] MEDS ORDERED: Regadenoson 0.4 MG/5 ML SYRINGE IVP ONE (06:33)
[2017-11-30] MEDS: Insulin LISPRO 300 UNITS/3 ML VIAL SQ SCH ×4 (07:49→20:53)
[2017-11-30] MEDS: BuPROPion XL (24 HR) 150 MG TABLET PO SCH (09:26)
[2017-11-30] MEDS: Lisinopril 20 MG TABLET PO SCH (09:26)
--- NOTE | 2017-11-30 17:46 | Internal Med Progress Note ---
Date of Encounter: 11/30/17 Time of Encounter: 17:50 - Assessment and plan (1) CAD (coronary artery disease) Current Visit: Yes Status: Acute Assessment and plan: hx PR; presented with left shoulder pain that radiated to the neck, concerning for anginal. Troponin 2 negative. EKG without acute ST changes. NPO at midnight. Stress test in a.m. Continue ASA, BB, statin, Qualifiers: Coronary Disease-Associated Artery/Lesion type: bypass graft [place] vs. transplanted heart: [place] heart Associated angina: with other forms of angina Qualified Code(s): I25.708 - Atherosclerosis of coronary artery bypass graft(s), unspecified, with other forms of angina pectoris (2) Atrial fibrillation Current Visit: Yes Status: Acute Assessment and plan: hx paroxysmal A. fib. EKG with NSR. Continue home BB. Not on anticoagulation for unknown reason; patient says she has never been on anticoagulation. Unsure why. Continue to monitor on telemetry. Qualifiers: Atrial fibrillation type: chronic Qualified Code(s): I48.2 - Chronic atrial fibrillation (3) Diabetes Current Visit: Yes Status: Acute Assessment and plan: per hx. Blood sugars controlled. Continue SSI. Monitor blood sugar and titrate PRN Qualifiers: Diabetes mellitus type: type 2 Diabetes mellitus complication status: without complication Diabetes mellitus exterminator helper insulin use: without [place] use Qualified Code(s): E11.9 - Type 2 diabetes mellitus without complications (4) HLD (hyperlipidemia) Current Visit: Yes Status: Acute Assessment and plan: per hx. Cont home statin Qualifiers: Hyperlipidemia type: unspecified Qualified Code(s): E78.5 - Hyperlipidemia , unspecified (5) HTN (hypertension) Current Visit: Yes Status: Acute Assessment and plan: per hx. BP controlled. Cont BP medication. Monitor BP and titrate PRN Qualifiers: Hypertension type: essential hypertension Qualified Code(s): I10 - Essential (primary) hypertension (6) Hypothyroid Current Visit: Yes Status: Acute Assessment and plan: per hx. Cont home Levothyroxine Qualifiers: Hypothyroidism type: unspecified Qualified Code(s): E03.9 - Hypothyroidism , unspecified (7) DVT prophylaxis Current Visit: Yes Status: Acute Assessment and plan: heparin - Subjective Interval history: Seen and examined at bedside; eventful day, had first prior stress test today and second part plan for tomorrow. She has no complaints. No further recurrence of left shoulder or neck pain. No chest pain or shortness of breath. - Constitutional Vitals: Temp Pulse Resp BP Pulse Ox 97.4 F L 72 16 121/66 96 11/30/17 16:17 11/30/17 16:17 11/30/17 16:17 11/30/17 16:17 11/30/17 16:17 General appearance: Present: cooperative, A&O X 3, morbidly obese, no acute distress, answers questions appropriately - Head Head exam: Present: atraumatic, normocephalic - Eye Eye exam: Present: PERRL, conjuntiva pink, sclera anicteric Pupils: Present: PERRL - Neck Neck exam general surgery: Present: supple, trachea midline. Absent: lymphadenopathy - Respiratory Respiratory exam: Present: CTAB. Absent: accessory muscle use, rales, rhonchi, wheezes - Cardiovascular Cardiovascular exam: Present: RRR, +S1, +S2. Absent: diastolic murmur, gallop, rubs, systolic murmur - GI/Abdominal GI/Abdominal exam: Present: normal bowel sounds, soft, no peritoneal signs. Absent: distended, tenderness - Extremities Exam Extremities exam: Present: warm, radial pulses palpable and symmetrical. Absent : calf tenderness, cyanotic, pedal edema - Neurological Exam Neurological exam: Present: CN II-XII intact, oriented X3, no focal deficits. Absent: pronater drift, facial droop, speech deficit - Skin Skin exam: Present: dry, intact Internal Medicine: Result - Labs CBC & Chem 7: 11/29/17 00:45 11/29/17 00:45 - ABG Interpretation ABG results: PT/INR, D-dimer PT 12.0 Seconds (9.4-12.1) 11/28/17 18:15 - Impressions Impressions Echocardiogram 11/29/17 12:00 Impressions: LVEF 45-50%. Low normal to mild global LV systolic dysfunction. LV size not well measured. Visually, LV is dilated. Indeterminate diastolic function. Dilated RV with normal function. Bi-atrial enlargement. Mild-moderate mitral regurgitation. Moderate tricuspid regurgitation. No pulmonary hypertension. Left Ventricular Wall Motion: Rest Echo Findings The apex, apical inferior, mid inferior, basal inferior, apical anterior, mid anterior, basal anterior, apical septal, mid inferior septal, basal inferior septal, apical lateral, mid anterior lateral and basal anterior lateral tirado were hypokinetic. The mid anterior septal, mid inferior lateral and basal inferior lateral tir[place] were not visualized. All other wall segments showed normal motion. Findings: Study Quality * Technically sub-optimal due to body habitus. ECG Findings * Consider atrial fibrillation. Left Ventricle * LVEF 45-50%. * Indeterminate diastolic function. * LV size not well measured. Visually, LV is dilated. * LV wall thickness measurements are not well obtained. Right Ventricle * Dilated RV with normal function. Left Atrium * Moderately dilated left atrium. Right Atrium * Moderately dilated right atrium. Aortic Valve * No aortic regurgitation. * Aortic valve not well visualized. * No aortic stenosis. Mitral Valve * Normal mitral valve structure. * No mitral stenosis. * Mild-moderate mitral regurgitation. Tricuspid Valve * Tricuspid valve not well visualized. * Moderate tricuspid regurgitation. * Estimated RA pressure is 3 mmHg. * Estimated RVSP is 27 mmHg. * No pulmonary hypertension. Pulmonic Valve * Pulmonic valve is not well visualized. * No pulmonic stenosis. * No pulmonic regurgitation. Pulmonary Artery * Pulmonary artery not well visualized. Aorta * Normally sized aortic root. Pericardium * There is no pericardial effusion present. Interatrial Septum * No evidence of PFO by color Doppler. IVC * Normal IVC dimensions and inspiratory collapse. Consult Discharge Plan - Plan Referrals: Ness Amaya, EPILEPSY PHYSICIAN [Primary Care Provider] -
[2017-11-30] MEDS: Aspirin Enteric Coated 81 MG Tablet PO SCH (20:51)
[2017-12-01] MEDS: *HR* Heparin 5,000 UNIT/ML VIAL SQ SCH (05:35)
[2017-12-01] MEDS: Insulin LISPRO 300 UNITS/3 ML VIAL SQ SCH ×2 (08:39→12:23)
[2017-12-01] MEDS: BuPROPion XL (24 HR) 150 MG TABLET PO SCH (09:03)
[2017-12-01] MEDS: Lisinopril 20 MG TABLET PO SCH (09:03)
[2017-12-01 15:00] VITALS: BP 106/62
--- NOTE | 2017-12-01 15:01 | Discharge Summary ---
Date of Encounter: 12/01/17 Time of Encounter: 14:55 - Discharge Diagnosis (1) CAD (coronary artery disease) Priority: Primary Status: Acute Comments: hx [place]; presented with left shoulder pain that radiated to the neck, concerning for anginal equivalent. Troponin 2 negative. EKG without acute ST changes. nuclear stress test with medium size, mild intensity fixed perfusion defect. Consistent with prior infarct/CABG. No symptom recurrence while inpatient. Maximize medical management with addition of long-acting nitrate. Continue ASA, BB, statin, add isosorbide. Follow up with primary factory worker within 2 weeks. Qualifiers: Coronary Disease-Associated Artery/Lesion type: bypass graft [place] vs. transplanted heart: [place] heart Associated angina: with other forms of angina Qualified Code(s): I25.708 - Atherosclerosis of coronary artery bypass graft(s), unspecified, with other forms of angina pectoris (2) Atrial fibrillation Priority: Secondary Status: Chronic Comments: hx paroxysmal A. fib. EKG with NSR. Not on anticoagulation for unknown reason ; patient says she has never been on anticoagulation (unsure why). No evidence of A. fib on telemetry. Continue home BB. Defer anticoagulation to cardiology. Qualifiers: Atrial fibrillation type: chronic Qualified Code(s): I48.2 - Chronic atrial fibrillation (3) Diabetes Priority: Secondary Status: Chronic Comments: per hx. blood sugars controlled. Continue home metformin. Qualifiers: Diabetes mellitus type: type 2 Diabetes mellitus complication status: without complication Diabetes mellitus fpc insulin use: without bed bug exterminator use Qualified Code(s): E11.9 - Type 2 diabetes mellitus without complications (4) HLD (hyperlipidemia) Priority: Secondary Status: Chronic Comments: per hx. Cont home statin Qualifiers: Hyperlipidemia type: unspecified Qualified Code(s): E78.5 - Hyperlipidemia , unspecified (5) HTN (hypertension) Priority: Secondary Status: Chronic Comments: per hx. BP controlled. Cont home BP medications. Qualifiers: Hypertension type: essential hypertension Qualified Code(s): I10 - Essential (primary) hypertension (6) Hypothyroid Priority: Secondary Status: Chronic Comments: per hx. Cont home levothyroxine Qualifiers: Hypothyroidism type: unspecified Qualified Code(s): E03.9 - Hypothyroidism , unspecified - Discharge Medications Prescriptions: Isosorbide MONOnitrate (24 HR) [Imdur] 30 mg PO DAILY #30 tab.er.24h Home Medications: Amitriptyline 10 mg PO HS 11/28/17 [History] Aspirin [Lo-Dose Aspirin EC] 81 mg PO HS 11/28/17 [History] Atorvastatin [Lipitor] 80 mg PO HS 11/28/17 [History] Bupropion HCl [Wellbutrin Xl] 300 mg PO DAILY 11/28/17 [History] Levothyroxine [Synthroid] 88 mcg PO 0630 11/28/17 [History] Lisinopril [Zestril] 20 mg PO DAILY 11/28/17 [History] Metoprolol Tartrate 12.5 mg PO BID 11/28/17 [History] Omeprazole [PriLOSEC] 20 mg PO DAILY 11/28/17 [History] Sertraline [Zoloft] 50 mg PO DAILY 11/28/17 [History] metFORMIN [Glucophage] 500 mg PO DAILY 11/28/17 [History] Isosorbide MONOnitrate (24 HR) [Imdur] 30 mg PO DAILY #30 tab.er.24h 12/01/17 [ Rx] Allergies/Adverse Reactions: 3 Allergy/AdvReac Type Severity Reaction Status Date / Time ondansetron AdvReac [place] Verified 12/13/15 14:52 [From Zofran (as hydrochloride)] Procedures/tests Complete & Pending: Procedures Performed prior 72 hours Category Date Time Status NM miki perf SPECT multi [NM] Routine Exams 11/28/17 20:15 Taken EV echocardiogram Stat Y 11/29/17 12:00 Completed SP pharm nuclear stress Routine Y 11/30/17 09:00 Completed Date of admission: 11/28/17 20:10 Primary care physician: Ness Amaya CNP Discharging clinician: Juani Larson Anticipated date of discharge: 12/01/17 - Patient Status Disposition: Home, Self-Care Condition: Good Functional capacity at discharge: independent ambulation Overall status at discharge: patient is back to baseline - Discharge Instructions Instructions: Isosorbide Mononitrate (By mouth), Coronary Artery Disease (DC) Follow Up With: Ness Amaya CNP [Primary Care Provider] - 12/08/17 11:00 am Luis Urias DO [Partnered Physician] - (Please call [facility] office within 2 weeks for follow-up appointment.) - Diet and Activity Activity: increase activity as tolerated Diet: low fat, low cholesterol Interval History: Seen and examined at bedside. States had uneventful night. No recurrence of left shoulder or left neck pain discussed stress test results and the addition of isosorbide. She is agreeable to try long-acting nitrate with outpatient cardiology follow-up. Patient advised if symptoms returned or she experiences chest pain and/or shortness of breath she is to return to the emergency room. Hospital course: Ms. Rodriguez is a 57 year old female - Time Spent with Patient Total time spent providing and/or coordinating discharge services: - Constitutional Vitals: Temp Pulse Resp BP Pulse Ox 98.2 F 66 16 99/59 96 12/01/17 12:18 12/01/17 12:18 12/01/17 12:18 12/01/17 12:18 12/01/17 12:18 General appearance: Present: cooperative, A&O X 3, morbidly obese, no acute distress, answers questions appropriately - Head Head exam: Present: atraumatic, normocephalic - Eye Eye exam: Present: PERRL, conjuntiva pink, sclera anicteric Pupils: Present: PERRL - Neck Neck exam general surgery: Present: supple, trachea midline. Absent: lymphadenopathy - Respiratory Respiratory exam: Present: CTAB. Absent: accessory muscle use, rales, rhonchi, wheezes - Cardiovascular Cardiovascular exam: Present: RRR, +S1, +S2. Absent: diastolic murmur, gallop, rubs, systolic murmur - GI/Abdominal GI/Abdominal exam: Present: normal bowel sounds, soft, no peritoneal signs. Absent: distended, tenderness - Extremities Exam Extremities exam: Present: warm, radial pulses palpable and symmetrical. Absent : calf tenderness, cyanotic, pedal edema - Neurological Exam Neurological exam: Present: CN II-XII intact, oriented X3, no focal deficits. Absent: pronater drift, facial droop, speech deficit - Skin Skin exam: Present: dry, intact
--- NOTE | 2017-12-01 17:12 | Electrocardiograph Report ---
[address] [address] Test Date: 2017-11-28 Pat Name: Any Rodriguez Department: 104 Room: [facility] Gender: F Bounty Hunter: KRISHNA : 1960 Requested By: Michael Brock Order Number: [id number] Reading MD: Roni Evans Measurements Intervals [place] Rate: 84 P: NV: 0 QRS: -13 QRSD: 94 T: 16 QT: 364 QTc: 405 Interpretive Statements ATRIAL FIBRILLATION LOW QRS VOLTAGE IN PRECORDIAL LEADS ABNORMAL RHYTHM ECG Electronically Signed On 12-01-2017 17:10:38 EST by Roni Evans
--- NOTE | 2017-12-01 17:16 | Electrocardiograph Report ---
[address] [place], [place] [address] Test Date: 2017-11-28 Pat Name: Any Rodriguez Department: 104 Room: 3B Gender: F Traffic Rate Analyst: EKP : 1960 Requested By: Lc Jacobs Order Number: [id number] Reading MD: Roni Evans Measurements Intervals [place] Rate: 79 P: DC: 0 QRS: -13 QRSD: 101 T: 29 QT: 379 QTc: 414 Interpretive Statements ATRIAL FIBRILLATION LOW QRS VOLTAGE IN PRECORDIAL LEADS POSSIBLE INFERIOR MYOCARDIAL INFARCTION, PROBABLY OLD WITH POSTERIOR EXTENSION ABNORMAL RHYTHM ECG Electronically Signed On 12-01-2017 17:15:10 EST by Roni Evans
== END 2017-12-01 16:57 | disposition home or self-care (01) ==
LOC: EMEROO 17:52 → 3BNU 17:52
PROVIDERS: ADMIT Nurse Practitioner; ATTEND Registered Nurse

== ENCOUNTER 2021-06-13 13:40 | Inpatient (IN) ==
[2021-06-13] MEDS ORDERED: Azithromycin 500 MG in 0.9 % Sodium Chloride 250 ML IVPB ONE (14:16)
[2021-06-13] MEDS ORDERED: 0.9 % Sodium Chloride 1,000 ML IVC ONE (14:16)
[2021-06-13] MEDS ORDERED: Vancomycin 2,000 MG/520 ML IV.SOLN IVPB ONE (14:16)
[2021-06-13] MEDS ORDERED: cefTRIAXone 1,000 MG in Water for inj. (sterile) 10 ML IVP ONE (14:16)
[2021-06-13 14:43] LABS: Basophils % 0.3 %; Hematocrit 43.8 % (35.3-44.9); Hemoglobin 14.9 g/dL (11.5-15.4); Immature Granulocytes % 0.9 % (0-4); Lymphocytes % 15.1 %; Mean Corpuscular Hemoglobin 29.6 pg (28.0-33.3); Mean Corpuscular Volume 87.1 fL (83.0-100.0); Mean Platelet Volume 9.8 fL (9.4-12.4); Monocytes # 0.6 K/mcL (0.0-1.3); Monocytes % 8.9 %; Platelet Count 170 K/mcL (140-400); Red Blood Count 5.03 M/mcL (3.82-4.97); Red Cell Distribution Width 13.1 % (11.5-14.5); Segmented Neutrophils % 74.8 %; White Blood Count 6.6 K/mcL (4.3-11.1)
[2021-06-13 15:03] LABS: VBG HCO3 22 mEq/L (21-27); VBG PCO2 33 mmHg (41-51); VBG PH 7.44 pH Units (7.32-7.42); VBG PO2 121 mmHg (25-50)
[2021-06-13 15:09] LABS: INR 2.7; Prothrombin Time 30.6 Seconds (9.4-12.1)
[2021-06-13 15:12] LABS: Activated Partial Thrombo Time 43.3 Seconds (26.0-36.0)
[2021-06-13 15:14] LABS: Alanine Aminotransferase 122 Units/L (7-52); Albumin 3.5 g/dL (3.5-5.7); Alkaline Phosphatase 87 Units/L (34-104); Aspartate Amino Transferase 243 Units/L (13-39); BUN/Creatinine Ratio 18 (6-26); Bilirubin,Direct 0.3 mg/dL (0.0-0.2); Bilirubin,Indirect 0.4 mg/dL (0.0-1.0); Bilirubin,Total 0.7 mg/dL (0.3-1.0); Blood Urea Nitrogen 17 mg/dL (8-23); Calcium 8.4 mg/dL (8.6-10.3); Carbon Dioxide 23 mEq/L (23-29); Chloride 95 mEq/L (98-107); Globulin 3.5 g/dL (2.4-3.5); Glucose 149 mg/dL (70-105); Magnesium 1.7 mg/dL (1.6-2.6); Osmolality,Calculated 270 (280-300); Phosphorous 2.3 mg/dL (2.7-4.5); Potassium 4.1 mEq/L (3.5-5.1); Sodium 128 mEq/L (136-145); Troponin I 0.06 ng/mL (< 0.04); eGFR For African Americans > 60 (> 60); eGFR For Non-African Americans > 60 (> 60)
[2021-06-13 16:27] LABS: Adenovirus Not Detected (Not Detect); Coronavirus 229E Not Detected (Not Detect); Coronavirus HKU1 Not Detected (Not Detect); Coronavirus NL63 Not Detected (Not Detect); Coronavirus OC43 Not Detected (Not Detect)
[2021-06-13 16:30] LABS: Bordetella Pertussis Not Detected (Not Detect); Chlamydophila pneumoniae Not Detected (Not Detect); Human Metapneumovirus Not Detected (Not Detect); Human Rhinovirus/Enterovirus Not Detected (Not Detect); Influenza A Subtype 2009 H1 Not Detected (Not Detect); Influenza B Not Detected (Not Detect); Mycoplasma pneumoniae Not Detected (Not Detect); Parainfluenza Virus 1 Not Detected (Not Detect); Parainfluenza Virus 2 Not Detected (Not Detect); Parainfluenza Virus 3 Not Detected (Not Detect); Parainfluenza Virus 4 Not Detected (Not Detect); Respiratory Syncytial Virus Not Detected (Not Detect); SARS-CoV-2 DETECTED (Not Detect)
[2021-06-13] MEDS ORDERED: Naloxone 0.4 MG/ML INJ IVP PRN (16:42)
[2021-06-13] MEDS ORDERED: Dextrose Gel 15 GM/37.5 ML TUBE PO PRN ×2 (16:47)
[2021-06-13] MEDS ORDERED: *HR* Dextrose 50 % in Water (Vial) 50 ML VIAL IVP PRN (16:47)
[2021-06-13] MEDS ORDERED: D5% in Water 1,000 ML IVC PRN (16:47)
[2021-06-13] MEDS ORDERED: *HR* Metoprolol 5 MG/5 ML VIAL IVP PRN (16:47)
[2021-06-13 18:24] LABS: Estimated Average Glucose 171 mg/dl; Hemoglobin A1C 7.6 %
[2021-06-13] MEDS: Aspirin Enteric Coated 81 MG Tablet PO SCH (21:32)
[2021-06-13] MEDS: Furosemide 20 MG/2 ML VIAL IVP SCH (22:01)
[2021-06-13] MEDS: *HR* Heparin 5,000 UNIT/ML VIAL SQ SCH (22:11)
[2021-06-13] MEDS: Insulin LISPRO 300 UNITS/3 ML VIAL SUBQ SCH (22:13)
[2021-06-14] MEDS: *HR* Heparin 5,000 UNIT/ML VIAL SQ SCH ×2 (06:07→16:27)
[2021-06-14 06:19] LABS: Basophils % 0.4 %; Hematocrit 42.5 % (35.3-44.9); Hemoglobin 13.9 g/dL (11.5-15.4); Immature Granulocytes % 1.5 % (0-4); Lymphocytes # 0.7 K/mcL (0.6-4.6); Lymphocytes % 13.5 %; Mean Corpuscular HGB Conc 32.7 g/dL (31.6-35.5); Mean Corpuscular Hemoglobin 28.8 pg (28.0-33.3); Mean Corpuscular Volume 88.2 fL (83.0-100.0); Mean Platelet Volume 10.4 fL (9.4-12.4); Monocytes # 0.2 K/mcL (0.0-1.3); Monocytes % 4.8 %; Neutrophils # 3.8 K/mcL (1.6-8.9); Platelet Count 165 K/mcL (140-400); Red Blood Count 4.82 M/mcL (3.82-4.97); Red Cell Distribution Width 13.2 % (11.5-14.5); Segmented Neutrophils % 79.8 %; White Blood Count 4.8 K/mcL (4.3-11.1)
[2021-06-14 06:35] LABS: BUN/Creatinine Ratio 19 (6-26); Blood Urea Nitrogen 18 mg/dL (8-23); Calcium 7.9 mg/dL (8.6-10.3); Carbon Dioxide 23 mEq/L (23-29); Chloride 99 mEq/L (98-107); Glucose 192 mg/dL (70-105); Magnesium 1.9 mg/dL (1.6-2.6); Osmolality,Calculated 279 (280-300); Phosphorous 3.3 mg/dL (2.7-4.5); Potassium 4.1 mEq/L (3.5-5.1); Sodium 131 mEq/L (136-145); eGFR For African Americans > 60 (> 60); eGFR For Non-African Americans > 60 (> 60)
[2021-06-14] MEDS: cefTRIAXone 1,000 MG in Water for inj. (sterile) 10 ML IVP SCH (10:30)
[2021-06-14] MEDS: Furosemide 20 MG/2 ML VIAL IVP SCH (10:30)
[2021-06-14] MEDS: Insulin LISPRO 300 UNITS/3 ML VIAL SUBQ SCH ×3 (11:20→20:56)
[2021-06-14 11:43] LABS: Alanine Aminotransferase 98 Units/L (7-52); Albumin 3.1 g/dL (3.5-5.7); Albumin/Globulin Ratio 0.9 (1.1-2.2); Alkaline Phosphatase 76 Units/L (34-104); Aspartate Amino Transferase 195 Units/L (13-39); Bilirubin,Direct 0.2 mg/dL (0.0-0.2); Bilirubin,Indirect 0.4 mg/dL (0.0-1.0); Bilirubin,Total 0.6 mg/dL (0.3-1.0); Globulin 3.4 g/dL (2.4-3.5); Total Protein 6.5 g/dL (6.4-8.9)
[2021-06-14] MEDS ORDERED: Azithromycin 500 MG in 0.9 % Sodium Chloride 250 ML IVPB SCH (17:00)
[2021-06-14] MEDS: Aspirin Enteric Coated 81 MG Tablet PO SCH (20:54)
[2021-06-14] MEDS: Clobetasol Propionate 0.05% 15 GM Cream Tube TP SCH (23:58)
[2021-06-15 00:15] LABS: Bilirubin,Urine Negative (Negative); Blood,Urine Trace (Negative); Clarity,Urine Clear (Clear); Color,Urine Light-Yellow (Yellow); Glucose,Urine (UA) Normal (Normal); Hyaline Casts,Urine Few per lpf (None Seen); Ketones,Urine Trace mg/dL (Negative); Leukocyte Esterase,Urine Trace (Negative); Mucus,Urine Few per lpf (None-Few); Nitrite,Urine Negative (Negative); PH,Urine 6.5 pH Units (5.0-8.0); Protein,Urine 70 mg/dL (Neg-Trace); RBC,Urine 0-3 per hpf (0-3); Specific Gravity,Urine 1.024 (1.010-1.025); Squamous Epithelial Cell,Urine Few per hpf (None-Few); Urobilinogen,Urine Normal (Normal); WBC,Urine 0-3 per hpf (0-3)
[2021-06-15 00:34] LABS: Acinetobacter baumannii by PCR Not Detected (Not Detect); Candida albicans by PCR Not Detected (Not Detect); Candida glabrata by PCR Not Detected (Not Detect); Candida krusei by PCR Not Detected (Not Detect); Candida parapsilosis by PCR Not Detected (Not Detect); Candida tropicalis by PCR Not Detected (Not Detect); Enterobacter cloacae Cmplx PCR Not Detected (Not Detect); Enterobacteriaceae by PCR Not Detected (Not Detect); Enterococcus by PCR Not Detected (Not Detect); Escherichia coli by PCR Not Detected (Not Detect); Klebsiella oxytoca by PCR Not Detected (Not Detect); Klebsiella pneumoniae by PCR Not Detected (Not Detect); Proteus by PCR Not Detected (Not Detect); Pseudomonas aeruginosa by PCR Not Detected (Not Detect); Serratia marcescens by PCR Not Detected (Not Detect); Staphylococcus aureus by PCR Not Detected (Not Detect); Staphylococcus by PCR Not Detected (Not Detect); Streptococcus agalactiae(B)PCR Not Detected (Not Detect); Streptococcus by PCR Not Detected (Not Detect); Streptococcus pneumoniae PCR Not Detected (Not Detect); Streptococcus pyogenes (A) PCR Not Detected (Not Detect); mecA Methicillin-Resist Gene Not Detected (Not Detect); vanA/B Vancomycin-Resist Genes Not Detected (Not Detect)
[2021-06-15] MEDS: *HR* Heparin 5,000 UNIT/ML VIAL SQ SCH ×2 (05:54→17:48)
[2021-06-15] MEDS: Insulin LISPRO 300 UNITS/3 ML VIAL SUBQ SCH ×5 (07:20→20:14)
[2021-06-15] MEDS: lisinopriL 20 MG TABLET PO SCH (08:54)
[2021-06-15] MEDS: cefTRIAXone 1,000 MG in Water for inj. (sterile) 10 ML IVP SCH (08:54)
[2021-06-15] MEDS: Isosorbide MONOnitrate (24 HR) 30 MG TAB.ER.24H PO SCH (08:54)
[2021-06-15] MEDS: Dexamethasone Sodium Phos/PF 10 MG/ML VIAL IVP SCH (08:55)
[2021-06-15] MEDS: Furosemide 20 MG/2 ML VIAL IVP SCH (08:56)
[2021-06-15] MEDS: Clobetasol Propionate 0.05% 15 GM Cream Tube TP SCH ×2 (08:57→20:15)
[2021-06-15 13:08] LABS: Adenovirus F 40/41 PCR Not detected (Not detect); Astrovirus PCR Not detected (Not detect); C.difficile Toxin A/B Gene PCR Not detected (Not detect); Campylobacter by PCR Not detected (Not detect); Cryptosporidium by PCR Not detected (Not detect); Cyclospora cayetanensis PCR Not detected (Not detect); E. coli O157 by PCR Not detected (Not detect); Entamoeba histolytica PCR Not detected (Not detect); Enteroaggregative E.coli(EAEC) Not detected (Not detect); Enteropathogenic E.coli(EPEC) DETECTED (Not detect); Enterotoxigenic E.coli (ETEC) Not detected (Not detect); Giardia lamblia PCR Not detected (Not detect); Norovirus GI/GII PCR Not detected (Not detect); Plesiomonas shigelloides PCR Not detected (Not detect); Rotavirus A PCR Not detected (Not detect); Salmonella PCR Not detected (Not detect); Sapovirus PCR Not detected (Not detect); Shig/EnteroinvasiveE coli EIEC Not detected (Not detect); Shigalike tox-prod E coli STEC Not detected (Not detect); Vibrio PCR Not detected (Not detect); Vibrio cholerae PCR Not detected (Not detect); Yersinia enterocolitica PCR Not detected (Not detect)
[2021-06-15] MEDS: Aspirin Enteric Coated 81 MG Tablet PO SCH (20:11)
[2021-06-15] MEDS ORDERED: *HR* Promethazine 25 MG/ML VIAL IM ONE (20:26)
[2021-06-16 04:41] LABS: Basophils % 0.2 %; Hematocrit 44.2 % (35.3-44.9); Hemoglobin 14.3 g/dL (11.5-15.4); Immature Granulocytes % 1.4 % (0-4); Lymphocytes # 1.1 K/mcL (0.6-4.6); Lymphocytes % 11.3 %; Mean Corpuscular HGB Conc 32.4 g/dL (31.6-35.5); Mean Corpuscular Hemoglobin 28.5 pg (28.0-33.3); Mean Corpuscular Volume 88.2 fL (83.0-100.0); Mean Platelet Volume 9.7 fL (9.4-12.4); Monocytes # 0.7 K/mcL (0.0-1.3); Monocytes % 7.8 %; Neutrophils # 7.4 K/mcL (1.6-8.9); Platelet Count 268 K/mcL (140-400); Red Blood Count 5.01 M/mcL (3.82-4.97); Red Cell Distribution Width 13.2 % (11.5-14.5); Segmented Neutrophils % 79.3 %; White Blood Count 9.3 K/mcL (4.3-11.1)
[2021-06-16 04:55] LABS: BUN/Creatinine Ratio 21 (6-26); Blood Urea Nitrogen 18 mg/dL (8-23); Calcium 8.4 mg/dL (8.6-10.3); Carbon Dioxide 24 mEq/L (23-29); Chloride 101 mEq/L (98-107); Glucose 193 mg/dL (70-105); Osmolality,Calculated 285 (280-300); Potassium 3.8 mEq/L (3.5-5.1); Sodium 134 mEq/L (136-145); eGFR For African Americans > 60 (> 60); eGFR For Non-African Americans > 60 (> 60)
[2021-06-16] MEDS: *HR* Heparin 5,000 UNIT/ML VIAL SQ SCH ×2 (06:22→17:56)
[2021-06-16] MEDS ORDERED: *HR* LORazepam 2 MG/ML VIAL IVP ONE (06:51)
[2021-06-16] MEDS ORDERED: *HR* LORazepam 2 MG/ML VIAL ONE (06:55)
[2021-06-16] MEDS ORDERED: Furosemide 40 MG/4 ML VIAL IVP ONE (07:26)
[2021-06-16] MEDS ORDERED: Albumin 25% 25gram/100mL 25 GM/100 ML IV.SOLN IVPB ONE ×2 (08:00→11:39)
[2021-06-16] MEDS ORDERED: 0.9 % Sodium Chloride 1,000 ML ONE (08:46)
[2021-06-16] MEDS ORDERED: Artificial Tears SOLN 15 ML BOTTLE BOTH EYES PRN (09:01)
[2021-06-16] MEDS ORDERED: *HR* Midazolam HCl 5 MG/5 ML VIAL IVP ONE ×5 (09:08→16:21)
[2021-06-16] MEDS ORDERED: *HR* FentaNYL (PF) 100 MCG/2 ML VIAL ONE (09:15)
[2021-06-16] MEDS ORDERED: Cisatracurium 200 MG in 0.9 % Sodium Chloride 180 ML IVC SCH (09:15)
[2021-06-16] MEDS ORDERED: FentaNYL (PF) 1,000 MCG/100 ML IV.SOLN IVC SCH ×2 (09:15→13:00)
[2021-06-16] MEDS ORDERED: *HR* FentaNYL (PF) 100 MCG/2 ML VIAL IVP ONE (09:18)
[2021-06-16] MEDS ORDERED: Haloperidol Lactate 5 MG/ML VIAL IVP ONE (09:19)
[2021-06-16 09:50] LABS: C-Reactive Protein 31 mg/L (Less than 10)
[2021-06-16] MEDS ORDERED: 0.9 % Sodium Chloride 500 ML ONE (10:00)
[2021-06-16] MEDS ORDERED: Norepinephrine 4 MG/254 ML IV.SOLN IVC SCH (10:15)
[2021-06-16] MEDS ORDERED: Dextrose Gel 15 GM/37.5 ML TUBE PO PRN ×2 (11:39)
[2021-06-16] MEDS ORDERED: *HR* Dextrose 50 % in Water (Vial) 50 ML VIAL IVP PRN (11:39)
[2021-06-16] MEDS ORDERED: D5% in Water 1,000 ML IVC PRN (11:39)
[2021-06-16] MEDS ORDERED: Naloxone 0.4 MG/ML INJ IVP PRN (11:39)
[2021-06-16] MEDS ORDERED: *HR* Metoprolol 5 MG/5 ML VIAL IVP PRN (11:39)
[2021-06-16] MEDS ORDERED: Artificial Tears SOLN 15 ML BOTTLE BOTH EYES SCH (12:00)
[2021-06-16 13:21] LABS: INR 1.3; Prothrombin Time 14.7 Seconds (9.4-12.1)
[2021-06-16] MEDS: Dexmedetomidine HCl 400 MCG/100 ML MLS IVC SCH (13:51)
[2021-06-16] MEDS: Vasopressin 40 UNIT in D5% in Water 100 ML IVC SCH (14:21)
[2021-06-16] MEDS ORDERED: Lidocaine -MPF 2% 5 ML VIAL SQ ONE (16:21)
[2021-06-16] MEDS ORDERED: *HR* Etomidate 20 MG/10 ML AMPUL IVP ONE (16:21)
[2021-06-16] MEDS ORDERED: *HR* Succinylcholine 200 MG/10 ML VIAL IVP ONE (16:21)
[2021-06-16] MEDS ORDERED: Insulin LISPRO 300 UNITS/3 ML VIAL SUBQ SCH ×2 (16:30→21:00)
[2021-06-16] MEDS: Insulin LISPRO 300 UNITS/3 ML VIAL SUBQ SCH ×3 (18:32→23:49)
[2021-06-16] MEDS: Furosemide 20 MG/2 ML VIAL IVP SCH (18:33)
[2021-06-16] MEDS: Isosorbide MONOnitrate (24 HR) 30 MG TAB.ER.24H PO SCH (18:33)
[2021-06-16] MEDS: Dexamethasone Sodium Phos/PF 10 MG/ML VIAL IVP SCH (18:33)
[2021-06-16] MEDS: cefTRIAXone 1,000 MG in Water for inj. (sterile) 10 ML IVP SCH (18:34)
[2021-06-16] MEDS: lisinopriL 20 MG TABLET PO SCH (18:34)
[2021-06-16] MEDS: Clobetasol Propionate 0.05% 15 GM Cream Tube TP SCH ×2 (18:34→20:43)
[2021-06-16] MEDS: Cisatracurium 200 MG in 0.9 % Sodium Chloride 180 ML IVC SCH (19:04)
[2021-06-16] MEDS: FentaNYL (PF) 2,500 MCG/50 ML IV.SOLN IVC SCH (19:20)
[2021-06-16] MEDS ORDERED: *HR* Metoprolol 5 MG/5 ML VIAL IVP ONE ×2 (19:40→19:42)
[2021-06-16] MEDS ORDERED: Chlorhexidine Rinse 15 ML MOUTHWASH MM SCH (21:00)
[2021-06-16] MEDS ORDERED: Aspirin Enteric Coated 81 MG Tablet PO SCH (21:00)
[2021-06-17] MEDS: Norepinephrine 4 MG/254 ML IV.SOLN IVC SCH ×3 (00:07→19:30)
[2021-06-17] MEDS: FentaNYL (PF) 2,500 MCG/50 ML IV.SOLN IVC SCH ×2 (03:37→16:15)
[2021-06-17] MEDS: Insulin LISPRO 300 UNITS/3 ML VIAL SUBQ SCH ×6 (04:13→23:53)
[2021-06-17 04:17] LABS: VBG Ionized Calcium 1.07 mmol/L (1.15-1.35)
[2021-06-17 04:26] LABS: ABG Base Excess -2 mEq/L (-2 to 3); ABG HCO3 24 mEq/L (21-27); ABG Oxygen Saturation 99 % (95-98); ABG PCO2 46 mmHg (35-45); ABG PH 7.33 pH Units (7.32-7.45); ABG PO2 126 mmHg (85-104); ABG TCO2 26 mEq/L (20-26); Blood Gas Modality ASSIST CONTROL; Blood Gas VT 380 cc
[2021-06-17 04:46] LABS: Basophils # 0.1 K/mcL (0.0-0.2); Basophils % 0.7 %; Hemoglobin 13.2 g/dL (11.5-15.4); Immature Granulocytes % 2.9 % (0-4); Lymphocytes # 0.8 K/mcL (0.6-4.6); Lymphocytes % 6.4 %; Mean Corpuscular HGB Conc 31.4 g/dL (31.6-35.5); Mean Corpuscular Volume 92.3 fL (83.0-100.0); Mean Platelet Volume 9.4 fL (9.4-12.4); Monocytes # 0.9 K/mcL (0.0-1.3); Monocytes % 6.7 %; Neutrophils # 10.8 K/mcL (1.6-8.9); Nucleated Red Blood Cells 0.2 /100 WBC (0); Platelet Count 341 K/mcL (140-400); Red Blood Count 4.55 M/mcL (3.82-4.97); Red Cell Distribution Width 13.7 % (11.5-14.5); Segmented Neutrophils % 83.3 %; White Blood Count 12.9 K/mcL (4.3-11.1)
[2021-06-17 05:02] LABS: Calcium 7.9 mg/dL (8.6-10.3); Magnesium 2.1 mg/dL (1.6-2.6); Phosphorous 7.1 mg/dL (2.7-4.5); Potassium 4.7 mEq/L (3.5-5.1)
[2021-06-17] MEDS: *HR* Heparin 5,000 UNIT/ML VIAL SQ SCH ×3 (05:39→23:25)
[2021-06-17] MEDS: Cisatracurium 200 MG in 0.9 % Sodium Chloride 180 ML IVC SCH ×3 (05:41→22:21)
[2021-06-17] MEDS: Calcium Gluconate 1gm/50mL 1 GM/50 ML BAG IVPB PRN ×2 (05:53→06:43)
[2021-06-17] MEDS: Dexmedetomidine HCl 400 MCG/100 ML MLS IVC SCH ×2 (07:49→23:26)
[2021-06-17] MEDS: cefTRIAXone 1,000 MG in Water for inj. (sterile) 10 ML IVP SCH (08:05)
[2021-06-17] MEDS: Pantoprazole 40 MG VIAL IVP SCH (08:31)
[2021-06-17] MEDS ORDERED: Furosemide 20 MG/2 ML VIAL IVP SCH (09:00)
[2021-06-17] MEDS ORDERED: lisinopriL 20 MG TABLET PO SCH (09:00)
[2021-06-17] MEDS ORDERED: Dexamethasone Sodium Phos/PF 10 MG/ML VIAL IVP SCH (09:00)
[2021-06-17] MEDS ORDERED: Isosorbide MONOnitrate (24 HR) 30 MG TAB.ER.24H PO SCH (09:00)
[2021-06-17] MEDS ORDERED: Artificial Tears SOLN 15 ML BOTTLE BOTH EYES PRN (11:51)
[2021-06-17] MEDS: Clobetasol Propionate 0.05% 15 GM Cream Tube TP SCH ×2 (15:22→20:09)
[2021-06-17] MEDS: Artificial Tears SOLN 15 ML BOTTLE BOTH EYES SCH ×4 (15:23→23:26)
[2021-06-17] MEDS: Albumin 25% 25gram/100mL 25 GM/100 ML IV.SOLN IVC SCH ×4 (15:32→20:26)
[2021-06-17] MEDS: Vasopressin 40 UNIT in D5% in Water 100 ML IVC SCH (15:40)
[2021-06-17] MEDS ORDERED: Phenylephrine 10 MG in 0.9 % Sodium Chloride 250 ML IVC SCH (16:15)
[2021-06-17] MEDS: Phenylephrine 50 MG in 0.9 % Sodium Chloride 250 ML IVC SCH ×2 (16:45→23:55)
[2021-06-17 19:32] LABS: Sodium, Urine 37.6 mEq/L
[2021-06-17] MEDS: Chlorhexidine Rinse 15 ML MOUTHWASH MM SCH (19:40)
[2021-06-18] MEDS: Artificial Tears SOLN 15 ML BOTTLE BOTH EYES SCH ×5 (03:15→20:31)
[2021-06-18 04:04] LABS: Basophils # 0.1 K/mcL (0.0-0.2); Basophils % 0.6 %; Hematocrit 36.1 % (35.3-44.9); Hemoglobin 11.4 g/dL (11.5-15.4); Immature Granulocytes % 4.8 % (0-4); Lymphocytes # 0.6 K/mcL (0.6-4.6); Lymphocytes % 4.6 %; Mean Corpuscular HGB Conc 31.6 g/dL (31.6-35.5); Mean Corpuscular Hemoglobin 28.9 pg (28.0-33.3); Mean Corpuscular Volume 91.6 fL (83.0-100.0); Mean Platelet Volume 9.2 fL (9.4-12.4); Monocytes % 8.3 %; Neutrophils # 10.2 K/mcL (1.6-8.9); Nucleated Red Blood Cells 0.2 /100 WBC (0); Platelet Count 320 K/mcL (140-400); Red Blood Count 3.94 M/mcL (3.82-4.97); Red Cell Distribution Width 13.3 % (11.5-14.5); Segmented Neutrophils % 81.7 %; White Blood Count 12.5 K/mcL (4.3-11.1)
[2021-06-18 04:06] LABS: VBG Ionized Calcium 1.04 mmol/L (1.15-1.35)
[2021-06-18 04:43] LABS: ABG Base Excess -5 mEq/L (-2 to 3); ABG HCO3 24 mEq/L (21-27); ABG Oxygen Saturation 88 % (95-98); ABG PCO2 63 mmHg (35-45); ABG PH 7.19 pH Units (7.32-7.45); ABG PO2 67 mmHg (85-104); ABG TCO2 26 mEq/L (20-26); Blood Gas Modality ASSIST CONTROL; Blood Gas VT 380 cc
[2021-06-18] MEDS: Insulin LISPRO 300 UNITS/3 ML VIAL SUBQ SCH ×5 (04:44→21:12)
[2021-06-18 04:48] LABS: Calcium 8.2 mg/dL (8.6-10.3); Magnesium 2.3 mg/dL (1.6-2.6); Phosphorous 7.7 mg/dL (2.7-4.5); Potassium 4.6 mEq/L (3.5-5.1)
[2021-06-18] MEDS: FentaNYL (PF) 2,500 MCG/50 ML IV.SOLN IVC SCH ×2 (05:03→17:43)
[2021-06-18] MEDS: *HR* Heparin 5,000 UNIT/ML VIAL SQ SCH ×3 (05:40→21:13)
[2021-06-18] MEDS: Calcium Gluconate 1gm/50mL 1 GM/50 ML BAG IVPB SCH ×2 (05:54→06:59)
[2021-06-18] MEDS: Cisatracurium 200 MG in 0.9 % Sodium Chloride 180 ML IVC SCH ×3 (06:28→22:45)
[2021-06-18 07:25] LABS: Platelet Estimate Normal (Normal)
[2021-06-18] MEDS: Chlorhexidine Rinse 15 ML MOUTHWASH MM SCH ×2 (07:36→20:30)
[2021-06-18] MEDS: Dexamethasone Sodium Phos/PF 10 MG/ML VIAL IVP SCH (07:36)
[2021-06-18] MEDS: Aspirin 81 MG TAB.CHEW GTUBE SCH (07:36)
[2021-06-18] MEDS: Pantoprazole 40 MG VIAL IVP SCH (07:37)
[2021-06-18] MEDS: cefTRIAXone 1,000 MG in Water for inj. (sterile) 10 ML IVP SCH (07:37)
[2021-06-18] MEDS: Clobetasol Propionate 0.05% 15 GM Cream Tube TP SCH ×2 (07:37→21:12)
[2021-06-18] MEDS: Phenylephrine 50 MG in 0.9 % Sodium Chloride 250 ML IVC SCH ×2 (07:39→17:44)
[2021-06-18] MEDS: Dexmedetomidine HCl 400 MCG/100 ML MLS IVC SCH (10:49)
[2021-06-18] MEDS ORDERED: Insulin DETEMIR 100 UNIT/ML X5UNITS SUBQ ONE (11:00)
[2021-06-18] MEDS: Nystatin POWDER 30 GM BOTTLE TP SCH ×2 (11:06→21:12)
[2021-06-18] MEDS ORDERED: 0.9 % Sodium Chloride 500 ML ONE (13:19)
[2021-06-18] MEDS ORDERED: *HR* Heparin 5,000 UNIT/ML VIAL ONE (13:28)
[2021-06-18] MEDS: Vasopressin 40 UNIT in D5% in Water 100 ML IVC SCH (14:16)
[2021-06-18 14:55] LABS: ABG Base Excess -6 mEq/L (-2 to 3); ABG HCO3 22 mEq/L (21-27); ABG Oxygen Saturation 84 % (95-98); ABG PCO2 54 mmHg (35-45); ABG PH 7.22 pH Units (7.32-7.45); ABG PO2 59 mmHg (85-104); ABG TCO2 24 mEq/L (20-26); Blood Gas Modality ASSIST CONTROL; Blood Gas VT 380 cc
[2021-06-18] MEDS ORDERED: Calcium Gluconate 1gm/50mL 1 GM/50 ML BAG IVPB PRN ×2 (15:20)
[2021-06-18] MEDS ORDERED: Albumin 25% 25gram/100mL 25 GM/100 ML IV.SOLN IVPB ONE (16:35)
[2021-06-18] MEDS: 0.9 % Sodium Chloride 1,000 ML PRIME SCH ×6 (17:05→23:36)
[2021-06-18 17:09] LABS: VBG Ionized Calcium 1.04 mmol/L (1.15-1.35)
[2021-06-18] MEDS: Calcium Chloride 4,000 MG in 0.9 % Sodium Chloride 1,000 ML CRRT SCH (18:11)
[2021-06-18] MEDS: PrismaSATE BGK 4/2.5 5,000 ML CRRT SCH ×4 (18:28→22:45)
[2021-06-18 20:22] LABS: VBG Ionized Calcium 0.96 mmol/L (1.15-1.35)
[2021-06-18] MEDS ORDERED: Insulin DETEMIR 100 UNIT/ML X5UNITS SUBQ SCH (21:00)
[2021-06-18] MEDS: Insulin DETEMIR 100 UNIT/ML X5UNITS SUBQ SCH (23:36)
[2021-06-19 00:38] LABS: VBG Ionized Calcium 1.04 mmol/L (1.15-1.35)
[2021-06-19] MEDS: Insulin LISPRO 300 UNITS/3 ML VIAL SUBQ SCH ×7 (00:44→23:33)
[2021-06-19] MEDS: Artificial Tears SOLN 15 ML BOTTLE BOTH EYES SCH ×7 (00:45→23:13)
[2021-06-19] MEDS: 0.9 % Sodium Chloride 1,000 ML PRIME SCH ×23 (00:45→23:57)
[2021-06-19 02:17] LABS: VBG Ionized Calcium 1.07 mmol/L (1.15-1.35)
[2021-06-19] MEDS: Dexmedetomidine HCl 400 MCG/100 ML MLS IVC SCH ×2 (02:21→17:35)
[2021-06-19] MEDS: PrismaSATE BGK 4/2.5 5,000 ML CRRT SCH ×8 (03:45→18:50)
[2021-06-19] MEDS: Phenylephrine 50 MG in 0.9 % Sodium Chloride 250 ML IVC SCH ×2 (04:00→12:26)
[2021-06-19 04:13] LABS: Basophils # 0.1 K/mcL (0.0-0.2); Basophils % 0.7 %; Hematocrit 35.3 % (35.3-44.9); Hemoglobin 11.3 g/dL (11.5-15.4); Immature Granulocytes % 4.8 % (0-4); Lymphocytes # 0.6 K/mcL (0.6-4.6); Lymphocytes % 3.9 %; Mean Corpuscular Hemoglobin 28.7 pg (28.0-33.3); Mean Corpuscular Volume 89.6 fL (83.0-100.0); Mean Platelet Volume 8.9 fL (9.4-12.4); Monocytes # 1.3 K/mcL (0.0-1.3); Monocytes % 8.5 %; Neutrophils # 12.4 K/mcL (1.6-8.9); Nucleated Red Blood Cells 0.1 /100 WBC (0); Platelet Count 355 K/mcL (140-400); Red Blood Count 3.94 M/mcL (3.82-4.97); Red Cell Distribution Width 13.2 % (11.5-14.5); Segmented Neutrophils % 82.1 %; White Blood Count 15.1 K/mcL (4.3-11.1)
[2021-06-19 04:19] LABS: VBG Ionized Calcium 1.12 mmol/L (1.15-1.35)
[2021-06-19] MEDS: Cisatracurium 200 MG in 0.9 % Sodium Chloride 180 ML IVC SCH ×4 (04:45→18:15)
[2021-06-19 04:48] LABS: Albumin 3.5 g/dL (3.5-5.7); Albumin/Globulin Ratio 1.3 (1.1-2.2); Bilirubin,Direct 0.8 mg/dL (0.0-0.2); Bilirubin,Indirect 0.4 mg/dL (0.0-1.0); Bilirubin,Total 1.2 mg/dL (0.3-1.0); Calcium 8.8 mg/dL (8.6-10.3); Globulin 2.7 g/dL (2.4-3.5); Magnesium 2.1 mg/dL (1.6-2.6); Potassium 4.2 mEq/L (3.5-5.1); Total Protein 6.2 g/dL (6.4-8.9)
[2021-06-19 04:57] LABS: ABG Base Excess -2 mEq/L (-2 to 3); ABG HCO3 26 mEq/L (21-27); ABG Oxygen Saturation 85 % (95-98); ABG PCO2 64 mmHg (35-45); ABG PH 7.23 pH Units (7.32-7.45); ABG PO2 62 mmHg (85-104); ABG TCO2 28 mEq/L (20-26); Blood Gas Modality ASSIST CONTROL; Blood Gas VT 380 cc
[2021-06-19] MEDS: *HR* Heparin 5,000 UNIT/ML VIAL SQ SCH ×3 (05:43→20:54)
[2021-06-19] MEDS: FentaNYL (PF) 2,500 MCG/50 ML IV.SOLN IVC SCH ×2 (08:00→22:00)
[2021-06-19] MEDS: Pantoprazole 40 MG VIAL IVP SCH (08:13)
[2021-06-19] MEDS: Dexamethasone Sodium Phos/PF 10 MG/ML VIAL IVP SCH (08:13)
[2021-06-19] MEDS: Aspirin 81 MG TAB.CHEW GTUBE SCH (08:14)
[2021-06-19] MEDS: Chlorhexidine Rinse 15 ML MOUTHWASH MM SCH ×2 (08:14→20:42)
[2021-06-19] MEDS: cefTRIAXone 1,000 MG in Water for inj. (sterile) 10 ML IVP SCH (08:14)
[2021-06-19] MEDS: Insulin DETEMIR 100 UNIT/ML X5UNITS SUBQ SCH ×2 (08:15→20:57)
[2021-06-19 08:46] LABS: INR 1.1; Prothrombin Time 12.3 Seconds (9.4-12.1)
[2021-06-19] MEDS: Nystatin POWDER 30 GM BOTTLE TP SCH ×2 (08:56→20:42)
[2021-06-19] MEDS: Clobetasol Propionate 0.05% 15 GM Cream Tube TP SCH ×2 (08:56→20:58)
[2021-06-19 11:08] LABS: VBG Ionized Calcium 1.07 mmol/L (1.15-1.35)
[2021-06-19] MEDS: Calcium Chloride 4,000 MG in 0.9 % Sodium Chloride 1,000 ML CRRT SCH (12:27)
[2021-06-19 14:18] LABS: VBG Ionized Calcium 1.07 mmol/L (1.15-1.35)
[2021-06-19] MEDS: Norepinephrine 4 MG/254 ML IV.SOLN IVC SCH (14:18)
[2021-06-19 16:36] LABS: VBG Ionized Calcium 1.08 mmol/L (1.15-1.35)
[2021-06-19 18:22] LABS: VBG Ionized Calcium 1.08 mmol/L (1.15-1.35)
[2021-06-19 20:53] LABS: VBG Ionized Calcium 1.08 mmol/L (1.15-1.35)
[2021-06-19] MEDS: *HR* Heparin 5,000 UNIT/ML VIAL IVP PRN (22:00)
[2021-06-19 23:04] LABS: VBG Ionized Calcium 1.09 mmol/L (1.15-1.35)
[2021-06-20] MEDS: PrismaSATE BGK 4/2.5 5,000 ML CRRT SCH ×10 (01:10→22:00)
[2021-06-20] MEDS: 0.9 % Sodium Chloride 1,000 ML PRIME SCH ×18 (01:16→23:48)
[2021-06-20 01:36] LABS: VBG Ionized Calcium 1.06 mmol/L (1.15-1.35)
[2021-06-20] MEDS: Cisatracurium 200 MG in 0.9 % Sodium Chloride 180 ML IVC SCH ×3 (02:00→18:52)
[2021-06-20] MEDS: Phenylephrine 50 MG in 0.9 % Sodium Chloride 250 ML IVC SCH ×3 (02:07→22:50)
[2021-06-20] MEDS: Calcium Chloride 4,000 MG in 0.9 % Sodium Chloride 1,000 ML CRRT SCH ×3 (02:50→22:50)
[2021-06-20] MEDS: Artificial Tears SOLN 15 ML BOTTLE BOTH EYES SCH ×6 (03:27→23:48)
[2021-06-20 03:33] LABS: Basophils # 0.1 K/mcL (0.0-0.2); Basophils % 0.4 %; Hemoglobin 11.1 g/dL (11.5-15.4); Immature Granulocytes % 5.2 % (0-4); Lymphocytes % 3.2 %; Mean Corpuscular HGB Conc 31.7 g/dL (31.6-35.5); Mean Corpuscular Hemoglobin 28.8 pg (28.0-33.3); Mean Corpuscular Volume 90.7 fL (83.0-100.0); Mean Platelet Volume 9.1 fL (9.4-12.4); Monocytes # 1.8 K/mcL (0.0-1.3); Nucleated Red Blood Cells 0.4 /100 WBC (0); Platelet Count 389 K/mcL (140-400); Red Blood Count 3.86 M/mcL (3.82-4.97); Red Cell Distribution Width 13.6 % (11.5-14.5); Segmented Neutrophils % 82.2 %; White Blood Count 20.3 K/mcL (4.3-11.1)
[2021-06-20 03:34] LABS: Lymphocytes # 0.7 K/mcL (0.6-4.6); Neutrophils # 16.7 K/mcL (1.6-8.9)
[2021-06-20 03:36] LABS: VBG Ionized Calcium 1.12 mmol/L (1.15-1.35)
[2021-06-20 03:56] LABS: Albumin 3.1 g/dL (3.5-5.7); Albumin/Globulin Ratio 1.1 (1.1-2.2); Bilirubin,Direct 0.5 mg/dL (0.0-0.2); Bilirubin,Indirect 0.4 mg/dL (0.0-1.0); Bilirubin,Total 0.9 mg/dL (0.3-1.0); Calcium 9.3 mg/dL (8.6-10.3); Globulin 2.7 g/dL (2.4-3.5); Magnesium 1.9 mg/dL (1.6-2.6); Phosphorous 3.6 mg/dL (2.7-4.5); Potassium 4.3 mEq/L (3.5-5.1); Total Protein 5.8 g/dL (6.4-8.9)
[2021-06-20 04:32] LABS: ABG Base Excess 3 mEq/L (-2 to 3); ABG HCO3 32 mEq/L (21-27); ABG Oxygen Saturation 84 % (95-98); ABG PCO2 70 mmHg (35-45); ABG PH 7.27 pH Units (7.32-7.45); ABG PO2 58 mmHg (85-104); ABG TCO2 34 mEq/L (20-26); Blood Gas Modality AF; Blood Gas VT 380 cc
[2021-06-20] MEDS: Insulin LISPRO 300 UNITS/3 ML VIAL SUBQ SCH ×6 (04:34→23:48)
[2021-06-20 04:40] LABS: Platelet Estimate Normal (Normal); Reactive Lymphocytes Present (Not Present)
[2021-06-20 05:41] LABS: VBG Ionized Calcium 1.08 mmol/L (1.15-1.35)
[2021-06-20] MEDS: *HR* Heparin 5,000 UNIT/ML VIAL SQ SCH ×2 (06:00→13:25)
[2021-06-20 07:11] LABS: VBG Ionized Calcium 1.11 mmol/L (1.15-1.35)
[2021-06-20] MEDS: Pantoprazole 40 MG VIAL IVP SCH (07:40)
[2021-06-20] MEDS: cefTRIAXone 1,000 MG in Water for inj. (sterile) 10 ML IVP SCH (07:40)
[2021-06-20] MEDS: Chlorhexidine Rinse 15 ML MOUTHWASH MM SCH ×2 (07:40→21:09)
[2021-06-20] MEDS: Dexamethasone Sodium Phos/PF 10 MG/ML VIAL IVP SCH (07:41)
[2021-06-20] MEDS: Aspirin 81 MG TAB.CHEW GTUBE SCH (07:42)
[2021-06-20] MEDS: Nystatin POWDER 30 GM BOTTLE TP SCH ×2 (07:42→21:09)
[2021-06-20] MEDS: Insulin DETEMIR 100 UNIT/ML X5UNITS SUBQ SCH ×2 (07:48→21:16)
[2021-06-20] MEDS: Clobetasol Propionate 0.05% 15 GM Cream Tube TP SCH ×2 (08:11→21:09)
[2021-06-20 08:41] LABS: Thyroid Stimulating Hormone 0.159 mcIU/mL (0.340-5.600)
[2021-06-20] MEDS: Dexmedetomidine HCl 400 MCG/100 ML MLS IVC SCH ×2 (09:19→21:10)
[2021-06-20 10:26] LABS: VBG Ionized Calcium 1.02 mmol/L (1.15-1.35)
[2021-06-20] MEDS: FentaNYL (PF) 2,500 MCG/50 ML IV.SOLN IVC SCH (11:46)
[2021-06-20] MEDS: Norepinephrine 4 MG/254 ML IV.SOLN IVC SCH (11:49)
[2021-06-20 12:24] LABS: VBG Ionized Calcium 1.09 mmol/L (1.15-1.35)
[2021-06-20] MEDS ORDERED: *HR* Heparin 5,000 UNIT/ML VIAL IVP PRN ×2 (16:13)
[2021-06-20 16:27] LABS: VBG Ionized Calcium 1.15 mmol/L (1.15-1.35)
[2021-06-20] MEDS: Heparin 25,000UNIT/250ML 1/2NS 25,000 UNIT/250 ML IV.SOLN IVC SCH (17:17)
[2021-06-20 17:30] LABS: Basophils # 0.1 K/mcL (0.0-0.2); Basophils % 0.4 %; Hematocrit 35.2 % (35.3-44.9); Immature Granulocytes % 6.6 % (0-4); Lymphocytes # 0.7 K/mcL (0.6-4.6); Lymphocytes % 3.4 %; Mean Corpuscular HGB Conc 31.3 g/dL (31.6-35.5); Mean Corpuscular Hemoglobin 28.5 pg (28.0-33.3); Mean Corpuscular Volume 91.2 fL (83.0-100.0); Monocytes # 1.6 K/mcL (0.0-1.3); Monocytes % 7.8 %; Neutrophils # 16.7 K/mcL (1.6-8.9); Nucleated Red Blood Cells 0.8 /100 WBC (0); Platelet Count 336 K/mcL (140-400); Red Blood Count 3.86 M/mcL (3.82-4.97); Red Cell Distribution Width 13.6 % (11.5-14.5); Segmented Neutrophils % 81.8 %; White Blood Count 20.4 K/mcL (4.3-11.1)
[2021-06-20 17:37] LABS: Heparin anti-factor XA UFH 0.07 IU/mL (0.30-0.70); Prothrombin Time 12.1 Seconds (9.4-12.1)
[2021-06-20 17:39] LABS: Activated Partial Thrombo Time 28.3 Seconds (26.0-36.0)
[2021-06-20 17:58] LABS: Polychromasia 1+ (Not Present); Toxic Granulation Present (Not Present)
[2021-06-20 18:06] LABS: VBG Ionized Calcium 1.06 mmol/L (1.15-1.35)
[2021-06-20] MEDS: *HR* Heparin 5,000 UNIT/ML VIAL IVP PRN (20:00)
[2021-06-20 20:38] LABS: VBG Ionized Calcium 1.28 mmol/L (1.15-1.35)
[2021-06-20 22:34] LABS: VBG Ionized Calcium 1.11 mmol/L (1.15-1.35)
[2021-06-21] MEDS: 0.9 % Sodium Chloride 1,000 ML PRIME SCH ×8 (00:27→05:36)
[2021-06-21] MEDS: FentaNYL (PF) 2,500 MCG/50 ML IV.SOLN IVC SCH ×2 (00:35→07:55)
[2021-06-21] MEDS: Cisatracurium 200 MG in 0.9 % Sodium Chloride 180 ML IVC SCH (02:00)
[2021-06-21] MEDS ORDERED: Vasopressin 40 UNIT in D5% in Water 100 ML IVC SCH (03:15)
[2021-06-21] MEDS: PrismaSATE BGK 4/2.5 5,000 ML CRRT SCH ×4 (03:25→08:52)
[2021-06-21] MEDS: Insulin LISPRO 300 UNITS/3 ML VIAL SUBQ SCH ×2 (04:00→09:01)
[2021-06-21 04:09] LABS: Hemoglobin 11.4 g/dL (11.5-15.4)
[2021-06-21 04:11] LABS: Hematocrit 36.3 % (35.3-44.9); Mean Corpuscular HGB Conc 31.4 g/dL (31.6-35.5); Mean Corpuscular Hemoglobin 28.9 pg (28.0-33.3); Mean Corpuscular Volume 91.9 fL (83.0-100.0); Mean Platelet Volume 9.2 fL (9.4-12.4); Nucleated Red Blood Cells 2.1 /100 WBC (0); Platelet Count 428 K/mcL (140-400); Red Blood Count 3.95 M/mcL (3.82-4.97); Red Cell Distribution Width 13.6 % (11.5-14.5)
[2021-06-21] MEDS: Artificial Tears SOLN 15 ML BOTTLE BOTH EYES SCH ×2 (04:14→07:57)
[2021-06-21 04:15] LABS: White Blood Count 31.8 K/mcL (4.3-11.1)
[2021-06-21 04:27] LABS: Albumin 2.7 g/dL (3.5-5.7); Albumin/Globulin Ratio 0.9 (1.1-2.2); Bilirubin,Direct 0.6 mg/dL (0.0-0.2); Bilirubin,Indirect 0.3 mg/dL (0.0-1.0); Bilirubin,Total 0.9 mg/dL (0.3-1.0); Calcium 9.2 mg/dL (8.6-10.3); Globulin 2.9 g/dL (2.4-3.5); Magnesium 2.1 mg/dL (1.6-2.6); Potassium 4.4 mEq/L (3.5-5.1); Total Protein 5.6 g/dL (6.4-8.9)
[2021-06-21 04:34] LABS: Lymphocytes # 3.8 K/mcL (0.6-4.6); Monocytes # 0.6 K/mcL (0.0-1.3); Neutrophils # 26.1 K/mcL (1.6-8.9); Toxic Granulation Present (Not Present)
[2021-06-21 04:35] LABS: Anisocytosis 1+ (Not Present); Polychromasia 1+ (Not Present)
[2021-06-21 04:36] LABS: ABG Base Excess 8 mEq/L (-2 to 3); ABG HCO3 37 mEq/L (21-27); ABG Oxygen Saturation 69 % (95-98); ABG PCO2 74 mmHg (35-45); ABG PH 7.31 pH Units (7.32-7.45); ABG PO2 42 mmHg (85-104); ABG TCO2 39 mEq/L (20-26); Blood Gas VT 380 cc
[2021-06-21] MEDS: Heparin 25,000UNIT/250ML 1/2NS 25,000 UNIT/250 ML IV.SOLN IVC SCH (05:36)
[2021-06-21] MEDS: Phenylephrine 50 MG in 0.9 % Sodium Chloride 250 ML IVC SCH ×2 (06:20→12:12)
[2021-06-21] MEDS: Chlorhexidine Rinse 15 ML MOUTHWASH MM SCH (07:52)
[2021-06-21] MEDS: cefTRIAXone 1,000 MG in Water for inj. (sterile) 10 ML IVP SCH (07:52)
[2021-06-21] MEDS: Pantoprazole 40 MG VIAL IVP SCH (07:53)
[2021-06-21] MEDS: Dexamethasone Sodium Phos/PF 10 MG/ML VIAL IVP SCH (07:54)
[2021-06-21] MEDS: Aspirin 81 MG TAB.CHEW GTUBE SCH (07:54)
[2021-06-21 08:51] VITALS: TEMP 98.6
[2021-06-21] MEDS: Nystatin POWDER 30 GM BOTTLE TP SCH (08:59)
[2021-06-21] MEDS: Insulin DETEMIR 100 UNIT/ML X5UNITS SUBQ SCH (09:00)
[2021-06-21 12:17] VITALS: PULSE 91
[2021-06-21] MEDS: *HR* LORazepam 2 MG/ML VIAL IVP PRN ×3 (12:30→15:53)
[2021-06-21 13:34] VITALS: BP 70/52
[2021-06-21 14:09] VITALS: O2SAT 65
== END 2021-06-21 14:35 | disposition expired | DRG 207 ==
LOC: EMEROOARM 13:40 → SUATTDRO 19:27 → 2NNU 19:27 → ICNU 06-16 09:59
PROVIDERS: ADMIT Internal Medicine; ATTEND Internal Medicine